=== PATIENT | female | born 1970 | race African-American/Black ===

== ENCOUNTER 2017-03-02 01:20 | Inpatient (IN) | payer BC, OTHER ==
[2017-03-02] VITALS (12 sets, daily range): BP systolic 100–146; BP diastolic 50–80; PULSE 55–71; RESP 16–33; TEMP 98–98.3; O2SAT 96–100
[~2017-03-02] VITALS: Ht 149.9 cm; Wt 55.0 kg
[~2017-03-02 01:20] MED LIST: ASPI325T PO; CLON0.2T PO; LISI-363 PO; METO25 PO; TRAM50TA PO
[2017-03-02] MEDS ORDERED: SODIUM CHLOR 0.9% 1000 ML INJ 1,000 ML IV ONE (01:37)
[2017-03-02] MEDS ORDERED: SODIUM CHLORIDE 0.9% FLUSH 10 ML FLUSH IVF PRN ×2 (01:45→03:00)
[2017-03-02 02:10] LABS: AUTOMATED NEUTROPHIL # 2.5 TH/MM3 (1.8-7.7); BASOPHIL % 0.8 % (0.0-2.0); EOSINOPHIL # 0.1 TH/MM3 (0-0.4); HEMATOCRIT 39.3 % (35.0-46.0); HEMO FLAGS DIFF FINAL; LYMPH % 42.4 % (9.0-44.0); LYMPHOCYTE # 2.3 TH/MM3 (1.0-4.8); MEAN CELL VOLUME 92.3 FL (80.0-100.0); MEAN CORPUSCULAR HEMOGLOBIN 31.1 PG (27.0-34.0); MEAN CORPUSCULAR HGB CONC 33.7 % (32.0-36.0); MONO % 8.2 % (0.0-8.0); NEUT % 47.6 % (16.0-70.0); PLATELET COUNT 245 TH/MM3 (150-450); RED BLOOD COUNT 4.26 MIL/MM3 (4.00-5.30); RED CELL DISTRIBUTION WIDTH 14.9 % (11.6-17.2); WHITE BLOOD COUNT 5.3 TH/MM3 (4.0-11.0)
[2017-03-02 02:18] LABS: APTT (PATIENT) 26.1 SEC (24.3-30.1)
[2017-03-02 02:29] LABS: ANION GAP 6 MEQ/L (5-15)
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
--- NOTE | 2017-03-02 02:39 | RADRPT ---
EXAM DATE/TIME: 03/02/2017 01:50 [facility] COMPARISON: CHEST SINGLE AP, May 31, 2013, 23:50. INDICATIONS : Possible overdose. MEDICAL HISTORY : hx TIA SURGICAL HISTORY : None. ENCOUNTER: Initial ACUITY: 1 day PAIN SCORE: 1/10 LOCATION: Bilateral upper chest FINDINGS: A single view of the chest demonstrates the lungs to be symmetrically aerated without evidence of mas s, infiltrate or effusion. The cardiomediastinal contours are unremarkable. Osseous structures are intact. CONCLUSION: No acute disease. Garry Santiago MD on March 02, 2017 at 2:36 Board Certified Radiologist. This report was verified electronically.
[2017-03-02 02:41] LABS: ALKALINE PHOSPHATASE 94 U/L (45-117); ALT (GPT) 12 U/L (10-53); AST (GOT) 11 U/L (15-37); BETA HCG QUANT 4 MIU/ML (0-5); BICARBONATE 26.3 MEQ/L (21.0-32.0); BLOOD UREA NITROGEN 7 MG/DL (7-18); CHLORIDE 114 MEQ/L (98-107); GLOMERULAR FILTRATION RATE 93 ML/MIN (>89); POTASSIUM 3.9 MEQ/L (3.5-5.1); SODIUM (NA) 146 MEQ/L (136-145); TOTAL BILIRUBIN ADULT LESS THAN 0.1 MG/DL (0.2-1.0)
[2017-03-02 02:42] LABS: ACETAMINOPHEN LESS THAN 2.0 MCG/ML (10.0-30.0)
[2017-03-02] MEDS ORDERED: ACTIVATED CHARCOAL LIQUID 25 GM/120 ML BTL PO/NG ONE (03:00)
[2017-03-02 03:04] LABS: BLOOD GAS BASE EXCESS -1.8 mmol/L (-2-2); BLOOD GAS CARBOXYHEMOGLOBIN 5.2 % (0-4); BLOOD GAS HCO3 22 mmol/L (22-26); BLOOD GAS METHEMOGLOBIN 0.7 % (0-2); BLOOD GAS O2 HGB SATURATION 92 % (90-100); BLOOD GAS OXYGEN CONTENT 15.5 Vol % (12.0-20.0); BLOOD GAS PCO2 37 mmHg (38-42); BLOOD GAS PO2 113 mmHG (61-120); BLOOD GAS TOTAL HGB 11.8 G/DL (12.0-16.0); TEMP CORR TO 98.6
[2017-03-02 03:05] LABS: CRITICAL VALUE YES; DRAW SITE RT RADIAL; FIO2 21 %; NUMBER OF ARTERIAL PUNCTURES 1; OXYGEN DEVICE RA; STAT YES; ULNAR PULSE PRESENT
[2017-03-02] MEDS ORDERED: SODIUM CHLOR 0.9% 1000 ML INJ 1,000 ML IV SCH (03:15)
[2017-03-02] MEDS ORDERED: MISCELLANEOUS NURSING INFORMATION XX SCH (03:30)
[2017-03-02] MEDS ORDERED: CHLORHEXIDINE GLUCONATE 2 % 1 PACK (2 CLOTHS) TOP PRN (03:30)
[2017-03-02] MEDS ORDERED: SODIUM BICARBONATE 8.4% INJ 150 MEQ in DEXTROSE 5% IN WATE 1000ML INJ 1,000 ML IV SCH ×2 (03:30)
[2017-03-02] MEDS ORDERED: MAGNESIUM HYDROXIDE SUSP 30 ML CUP PO PRN (03:30)
[2017-03-02] MEDS ORDERED: LACTULOSE SYRUP 20 GM/30 ML CUP PO PRN (03:30)
[2017-03-02] MEDS ORDERED: ONDANSETRON HCL 4 MG/2 ML VIAL IV PRN (03:30)
[2017-03-02] MEDS ORDERED: hydrALAZINE HCL 20 MG/ML VIAL IV PUSH PRN (03:30)
[2017-03-02] MEDS ORDERED: RESP: ALBUTEROL 2.5 MG/3 ML NEB (PRN) INH (03:30)
[2017-03-02] MEDS ORDERED: BISACODYL 10 MG SUPP RECTAL PRN (03:30)
[2017-03-02] MEDS ORDERED: SENNOSIDES 8.6 MG TAB PO PRN (03:30)
[2017-03-02] MEDS ORDERED: SODIUM CHLORIDE 0.9% FLUSH 10 ML FLUSH IV FLUSH PRN (03:30)
[2017-03-02] MEDS ORDERED: NITROGLYCERIN 2% OINT 1 GM PACKET TOPICAL PRN (03:30)
[2017-03-02] MEDS ORDERED: DEXTROSE 50% IN WATER 50 ML VIAL(D50) IV PRN (03:45)
[2017-03-02] MEDS ORDERED: GLUCAGON 1 MG/ML VIAL OTHER PRN (03:45)
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
[2017-03-02 03:46] LABS: BLOOD, URINE NEG (NEG); COMMENT (UR) CULT NOT INDICATED; CULTURE IF INDICATED CULT NOT INDICATED; GLUCOSE,URINE NEG (NEG); KETONE, URINE NEG (NEG); MUCUS URINE FEW /lpf (OCC); NITRITE,URINE NEG (NEG); PH, URINE 5.5 (5.0-8.5); SQUAMOUS EPITHELIAL CELL URINE 5 /hpf (0-5); URINE COLOR LIGHT-YELLOW (YELLW/STRAW)
[2017-03-02] MEDS ORDERED: CHLORHEXIDINE GLUCONATE 2 % 1 PACK (2 CLOTHS) TOP SCH (04:00)
[2017-03-02 04:04] LABS: AMPHETAMINE, URINE NEG (NEG); BARBITURATES, URINE NEG (NEG); COCAINE, URINE NEG (NEG)
[2017-03-02 04:53] LABS: BICARBONATE 22.2 MEQ/L (21.0-32.0); POTASSIUM 3.2 MEQ/L (3.5-5.1)
[2017-03-02 05:57] LABS: BICARBONATE 22.9 MEQ/L (21.0-32.0); POTASSIUM 3.4 MEQ/L (3.5-5.1)
[2017-03-02] MEDS ORDERED: PANTOPRAZOLE SODIUM 40 MG VIAL IV PUSH SCH (06:00)
[2017-03-02] MEDS: HEPARIN SODIUM - SQ 10,000 UNITS/ML VIAL SQ SCH ×2 (06:00→13:28)
[2017-03-02] MEDS: INSULIN NovoLIN REGULAR SUPPLEMENTAL SCALE SQ SCH ×2 (06:00→11:09)
[2017-03-02] MEDS ORDERED: THIAMINE INJ 100 MG in SODIUM CHLORIDE 0.9% INJ 100 ML IV SCH (09:00)
[2017-03-02] MEDS ORDERED: FOLIC ACID 1 MG TAB PO SCH (09:00)
[2017-03-02] MEDS ORDERED: SODIUM CHLORIDE 0.9% FLUSH 10 ML FLUSH IV FLUSH SCH (09:00)
[2017-03-02] MEDS ORDERED: MULTIVITAMIN TAB PO SCH (09:00)
[2017-03-02] MEDS ORDERED: DOCUSATE SODIUM 50 MG/SENNA 8.6 MG TAB PO SCH (09:00)
[2017-03-02] MEDS ORDERED: LISI20TA PO (11:32)
--- NOTE | 2017-03-02 12:55 | PD.CONS ---
HPI Service Nephrology Consult Requested By Dr. Ceja Reason for Consult Salicylate overdose Primary Care Physician Unknown History of Present Illness Patient is a 46-year-old female with history of depression, TIA in the past 5, hypertension who presented to the emergency after taking a handful of aspirin she thinks that she took 12 pills of 325 mg, she also drank alcohol 16 ounce x 3 she is complaining of just headaches there is no shortness of breath no ringing in the ears and she is feeling comfortable now last salicylate levels were 25.1 Review of Systems Constitutional: COMPLAINS OF: Fatigue Neurologic: COMPLAINS OF: Headache Past Family Social History Allergies: Coded Allergies: Hydrocodone (Verified Allergy, Severe, Itching, 03/02/17) Past Medical History TIA Depression bipolar Hypertension Irritable bowel syndrome Asthma Reported Medications Reported Meds & Active Scripts Active Reported Lisinopril-Hctz 20-12.5 Mg Tab 1 Tab PO DAILY Active Ordered Medications Current Medications Medications (Trade) Dose Ordered Sig/Francie Route Start Time Stop Time Status Last Admin Sodium Chloride 1,000 ml @ 100 mls/hr Q10H IV 03/02/17 03:15 Hold 03/02/17 03:18 (Thiamine Inj/NS Inj) 101 ml @ 101 mls/hr DAILY IV 03/02/17 09:00 03/02/17 09:00 (Folate) 1 mg DAILY PO 03/02/17 09:00 03/02/17 09:46 (Theragran) 1 tab DAILY PO 03/02/17 09:00 03/02/17 09:45 (NS Flush) 2 ml UNSCH PRN IV FLUSH 03/02/17 03:30 03/02/17 09:46 (NS Flush) 2 ml BID IV FLUSH 03/02/17 09:00 03/02/17 09:46 (Zofran Inj) 4 mg Q6H PRN IV 03/02/17 03:30 (Heparin Inj) 5,000 units Q8HR SQ 03/02/17 06:00 Miscellaneous Information 1 Q361D XX 03/02/17 03:30 03/02/17 03:30 (Chlorhexidine 2% Cloth) 3 pack Taper DAILY@04 TOP 03/02/17 04:00 02/26/18 03:59 03/02/17 04:00 (Chlorhexidine 2% Cloth) 3 pack UNSCH PRN TOP 03/02/17 03:30 (Mayra-Colace) 1 tab BID PO 03/02/17 09:00 03/02/17 09:00 (Milk Of Magnesia Liq) 30 ml Q12H PRN PO 03/02/17 03:30 (Senokot) 17.2 mg Q12H PRN PO 03/02/17 03:30 (Dulcolax Supp) 10 mg DAILY PRN RECTAL 03/02/17 03:30 (Lactulose Liq) 30 ml DAILY PRN PO 03/02/17 03:30 (Apresoline Inj) 10 mg Q1HR PRN IV PUSH 03/02/17 03:30 (Nitroglycerin 2% Oint) 1 inch Q6HR PRN TOPICAL 03/02/17 03:30 (Protonix Inj) 40 mg Q24H IV PUSH 03/02/17 06:00 03/02/17 06:17 (D50w (Vial) Inj) 50 ml UNSCH PRN IV 03/02/17 03:45 (Glucagon Inj) 1 mg UNSCH PRN OTHER 03/02/17 03:45 (NovoLIN R SUPPLEMENTAL SCALE) 1 Q6HR SQ 03/02/17 06:00 Family History Noncontributory Social History Smokes marijuana and drinks alcohol regularly Physical Exam Vital Signs Vital Signs Date Time Temp Pulse Resp B/P Pulse Ox O2 Delivery O2 Flow Rate FiO2 03/02/17 12:00 98.3 55 28 107/59 99 03/02/17 12:00 55 03/02/17 11:00 67 03/02/17 11:00 67 33 139/80 100 03/02/17 10:00 64 03/02/17 10:00 64 24 146/75 100 03/02/17 08:00 62 03/02/17 08:00 98.2 62 22 105/50 98 03/02/17 06:00 71 03/02/17 04:48 98.0 70 16 111/60 97 03/02/17 04:00 62 19 100/57 100 Room Air 03/02/17 02:00 60 22 118/73 100 Room Air 03/02/17 01:50 18 96 Room Air 03/02/17 01:36 98.1 65 20 141/72 98 Physical Exam GENERAL: Well-nourished, well-developed patient. SKIN: Warm and dry. HEAD: Normocephalic. EYES: No scleral icterus. No injection or drainage. NECK: Supple, trachea midline. No JVD or lymphadenopathy. CARDIOVASCULAR: Regular rate and rhythm without murmurs, gallops, or rubs. RESPIRATORY: Breath sounds equal bilaterally. No accessory muscle use. GASTROINTESTINAL: Abdomen soft, non-tender, nondistended. EXTREMITIES: No cyanosis, or edema. NEUROLOGICAL: Awake, alert, and oriented x 3. Non-focal. Laboratory Laboratory Tests Test 03/02/17 03/02/17 03/02/17 03/02/17 02:00 02:50 03:30 04:12 White Blood Count 5.3 Red Blood Count 4.26 Hemoglobin 13.2 Hematocrit 39.3 Mean Corpuscular Volume 92.3 Mean Corpuscular Hemoglobin 31.1 Mean Corpuscular Hemoglobin 33.7 Concent Red Cell Distribution Width 14.9 Platelet Count 245 Mean Platelet Volume 8.6 Neutrophils (%) (Auto) 47.6 Lymphocytes (%) (Auto) 42.4 Monocytes (%) (Auto) 8.2 Eosinophils (%) (Auto) 1.0 Basophils (%) (Auto) 0.8 Neutrophils # (Auto) 2.5 Lymphocytes # (Auto) 2.3 Monocytes # (Auto) 0.4 Eosinophils # (Auto) 0.1 Basophils # (Auto) 0.0 CBC Comment DIFF FINAL Differential Comment Prothrombin Time 11.0 Prothromb Time International 1.0 Ratio Activated Partial 26.1 Thromboplast Time Sodium Level 146 148 Potassium Level 3.9 3.2 Chloride Level 114 116 Carbon Dioxide Level 26.3 22.2 Anion Gap 6 10 Blood Urea Nitrogen 7 7 Creatinine 0.81 0.76 Estimat Glomerular Filtration 93 100 Rate Random Glucose 82 133 Serum Osmolality 372 Calcium Level 8.7 7.7 Total Bilirubin LESS THAN 0.1 Aspartate Amino Transf 11 (AST/SGOT) Alanine Aminotransferase 12 (ALT/SGPT) Alkaline Phosphatase 94 Total Protein 8.1 Albumin 3.9 Human Chorionic Gonadotropin, 4 Quant Salicylates Level 31.9 25.4 Acetaminophen Level LESS THAN 2.0 Ethyl Alcohol Level 295 Blood Gas Puncture Site RT RADIAL Blood Gas Patient Temperature 98.6 Blood Gas HCO3 22 Blood Gas Base Excess -1.8 Blood Gas Oxygen Saturation 92 Arterial Blood pH 7.40 Arterial Blood Partial 37 Pressure CO2 Arterial Blood Partial 113 Pressure O2 Arterial Blood Oxygen Content 15.5 Arterial Blood 5.2 Carboxyhemoglobin Arterial Blood Methemoglobin 0.7 Blood Gas Hemoglobin 11.8 Oxygen Delivery Device RA Blood Gas Inspired Oxygen 21 Urine Color LIGHT-YELLOW Urine Turbidity HAZY Urine pH 5.5 Urine Specific [place] 1.007 Urine Protein NEG Urine Glucose (UA) NEG Urine Ketones NEG Urine Occult Blood NEG Urine Nitrite NEG Urine Bilirubin NEG Urine Urobilinogen LESS THAN 2.0 Urine Leukocyte Esterase TRACE Urine RBC 2 Urine WBC 1 Urine Squamous Epithelial 5 Cells Urine Mucus FEW Microscopic Urinalysis Comment CULT NOT INDICATED Urine Osmolality 363 Urine Opiates Screen NEG Urine Barbiturates Screen NEG Urine Amphetamines Screen NEG Urine Benzodiazepines Screen NEG Urine Cocaine Screen NEG Urine Cannabinoids Screen POS Total Creatine Kinase 95 Lipase 510 Test 03/02/17 03/02/17 03/02/17 04:40 05:07 08:55 Nasal Screen MRSA (PCR) MRSA NOT DETECTED Sodium Level 148 Potassium Level 3.4 Chloride Level 118 Carbon Dioxide Level 22.9 Anion Gap 7 Blood Urea Nitrogen 6 Creatinine 0.78 Estimat Glomerular Filtration 97 Rate Random Glucose 75 Calcium Level 7.8 Salicylates Level 26.7 25.1 Result Diagram: 03/02/17 0200 03/02/17 0507 Imaging Last Impressions Chest X-Ray 03/02/17136 Signed Impressions: Service Date/Time: Thursday, March 02, 2017 01:50 - CONCLUSION: No acute disease. Garry Santiago MD Laboratory Tests Test 03/02/17 03/02/17 03/02/17 03/02/17 02:00 02:50 03:30 04:12 White Blood Count 5.3 TH/MM3 Red Blood Count 4.26 MIL/MM3 Hemoglobin 13.2 GM/DL Hematocrit 39.3 % Mean Corpuscular Volume 92.3 FL Mean Corpuscular Hemoglobin 31.1 PG Mean Corpuscular Hemoglobin 33.7 % Concent Red Cell Distribution Width 14.9 % Platelet Count 245 TH/MM3 Mean Platelet Volume 8.6 FL Neutrophils (%) (Auto) 47.6 % Lymphocytes (%) (Auto) 42.4 % Monocytes (%) (Auto) 8.2 % Eosinophils (%) (Auto) 1.0 % Basophils (%) (Auto) 0.8 % Neutrophils # (Auto) 2.5 TH/MM3 Lymphocytes # (Auto) 2.3 TH/MM3 Monocytes # (Auto) 0.4 TH/MM3 Eosinophils # (Auto) 0.1 TH/MM3 Basophils # (Auto) 0.0 TH/MM3 CBC Comment DIFF FINAL Differential Comment Prothrombin Time 11.0 SEC Prothromb Time International 1.0 RATIO Ratio Activated Partial 26.1 SEC Thromboplast Time Serum Osmolality 372 MOSM/KG Total Bilirubin LESS THAN 0.1 MG/DL Aspartate Amino Transf 11 U/L (AST/SGOT) Alanine Aminotransferase 12 U/L (ALT/SGPT) Alkaline Phosphatase 94 U/L Total Protein 8.1 GM/DL Albumin 3.9 GM/DL Human Chorionic Gonadotropin, 4 MIU/ML Quant Acetaminophen Level LESS THAN 2.0 MCG/ML Ethyl Alcohol Level 295 MG/DL Blood Gas Puncture Site RT RADIAL Blood Gas Patient Temperature 98.6 Blood Gas HCO3 22 mmol/L Blood Gas Base Excess -1.8 mmol/L Blood Gas Oxygen Saturation 92 % Arterial Blood pH 7.40 Arterial Blood Partial 37 mmHg Pressure CO2 Arterial Blood Partial 113 mmHG Pressure O2 Arterial Blood Oxygen Content 15.5 Vol % Arterial Blood 5.2 % Carboxyhemoglobin Arterial Blood Methemoglobin 0.7 % Blood Gas Hemoglobin 11.8 G/DL Oxygen Delivery Device RA Blood Gas Inspired Oxygen 21 % Urine Color LIGHT-YELLOW Urine Turbidity HAZY Urine pH 5.5 Urine Specific [place] 1.007 Urine Protein NEG mg/dL Urine Glucose (UA) NEG mg/dL Urine Ketones NEG mg/dL Urine Occult Blood NEG Urine Nitrite NEG Urine Bilirubin NEG Urine Urobilinogen LESS THAN 2.0 MG/DL Urine Leukocyte Esterase TRACE Urine RBC 2 /hpf Urine WBC 1 /hpf Urine Squamous Epithelial 5 /hpf Cells Urine Mucus FEW /lpf Microscopic Urinalysis Comment CULT NOT INDICATED Urine Osmolality 363 MOSM/KG Urine Opiates Screen NEG Urine Barbiturates Screen NEG Urine Amphetamines Screen NEG Urine Benzodiazepines Screen NEG Urine Cocaine Screen NEG Urine Cannabinoids Screen POS Total Creatine Kinase 95 U/L Lipase 510 U/L Test 03/02/17 03/02/17 03/02/17 04:40 05:07 08:55 Nasal Screen MRSA (PCR) MRSA NOT DETECTED Sodium Level 148 MEQ/L Potassium Level 3.4 MEQ/L Chloride Level 118 MEQ/L Carbon Dioxide Level 22.9 MEQ/L Anion Gap 7 MEQ/L Blood Urea Nitrogen 6 MG/DL Creatinine 0.78 MG/DL Estimat Glomerular Filtration 97 ML/MIN Rate Random Glucose 75 MG/DL Calcium Level 7.8 MG/DL Salicylates Level 25.1 MG/DL Assessment and Plan Problem List: (1) Salicylate overdose Plan: I agree with medical treatment continued supportive care hydration Her levels are slowly going down and she is stable enough to be transferred out of the unit There is no indication for hemodialysis There is no acidosis PH 7.4 I will sign off replace K (2) Hypertension Plan: Stable (3) Bipolar disorder Plan: Needs psychiatry transfer (4) Alcohol intoxication Plan: Alcohol level was 295 Problem Qualifiers (1) Salicylate overdose: Qualified Code: T39.092A - Salicylate overdose, intentional self-harm, initial encounter (2) Hypertension: Qualified Code: I10 - Essential hypertension (3) Bipolar disorder: Qualified Code: F31.60 - Bipolar affective disorder, current episode mixed, current episode severity unspecified (4) Alcohol intoxication: Qualified Code: F10.920 - Alcohol intoxication, uncomplicated Rina Barrett MD Mar 02, 2017 12:55
[2017-03-02] MEDS ORDERED: POTASSIUM CHLORIDE 10 MEQ CONTROLLED RELEASE TAB PO ONE (13:00)
--- NOTE | 2017-03-02 13:13 | EKG ---
Date Performed: 03/02/2017 Time Performed: 01:57:54 PTAGE: 46 years EKG: Sinus rhythm NORMAL ECG PREVIOUS TRACING : 09/20/2014 03.40 Compared to prior tracing no significant change DOCTOR: David Mireles Interpretating Date/Time 03/02/2017 13:11:01
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
[2017-03-02 14:04] LABS: BICARBONATE 29.6 MEQ/L (21.0-32.0); MAGNESIUM 1.6 MG/DL (1.5-2.5); POTASSIUM 3.3 MEQ/L (3.5-5.1)
== END 2017-03-02 16:16 | DRG 918 ==
LOC: NEPC 01:20 → NEDA 03:11 → HIME 04:30
PROVIDERS: ADMIT Internal Medicine Critical Care Medicine; ATTEND Internal Medicine Critical Care Medicine
DX: T39.012A Poisoning by aspirin, intentional self-harm, initial encounter (principal); F31.9 Bipolar disorder, unspecified; I10 Essential (primary) hypertension; F10.120 Alcohol abuse with intoxication, uncomplicated; Y90.8 Blood alcohol level of 240 mg/100 ml or more; J45.909 Unspecified asthma, uncomplicated; Z86.73 Personal history of transient ischemic attack (TIA), and cerebral infarction without residual deficits; K58.9 Irritable bowel syndrome, unspecified; K21.0 Gastro-esophageal reflux disease with esophagitis; K08.9 Disorder of teeth and supporting structures, unspecified; Z87.891 Personal history of nicotine dependence
CPT/HCPCS: 36600; 71010; 80048; 80053; 80307; 81001; 82550; 82805; 82948; 83690; 83735; 83930; 83935; 84100; 84443; 84702; 85025; 85610; 85730; 87641; 93005; 94150; C9113; J1644; J2405; J3411; J7030; J7070

== ENCOUNTER 2017-03-02 15:15 | Inpatient (IN) | payer BC ==
[~2017-03-02] VITALS: Ht 149.9 cm; Wt 52.7 kg
[~2017-03-02 15:15] MED LIST changes: +LISI20TA PO
[2017-03-02 16:20] VITALS: BP 165/79; PULSE 63; RESP 18; TEMP 98.3; O2SAT 100
[2017-03-02] MEDS ORDERED: LORazepam 1 MG TAB PO PRN (21:45)
[2017-03-02] MEDS ORDERED: LORazepam 0.5 MG TAB PO PRN (21:45)
[2017-03-02] MEDS ORDERED: ALUMINUM/MAGNESIUM/SIMETH 30 ML CUP PO PRN (21:45)
[2017-03-02] MEDS ORDERED: LORazepam 2 MG/ML VIAL IM PRN ×2 (21:45)
[2017-03-02] MEDS ORDERED: MAGNESIUM HYDROXIDE SUSP 30 ML CUP PO PRN (21:45)
[2017-03-02 22:00] VITALS: BP 172/84; PULSE 68; RESP 20; O2SAT 100
[2017-03-02] MEDS: ACETAMINOPHEN 325 MG TAB PO PRN (22:21)
[2017-03-02 23:15] VITALS: BP 173/76; PULSE 64; RESP 20; TEMP 98.3; O2SAT 100
[2017-03-03 06:14] VITALS: BP 122/62; PULSE 58; RESP 18; TEMP 98.6; O2SAT 99
[2017-03-03] MEDS ORDERED: HYDROCHLOROTHIAZIDE 25 MG TAB PO SCH (09:00)
[2017-03-03] MEDS ORDERED: NON-FORMULARY DRUG (Lisinopril-Hctz 1 TAB) PO SCH (09:00)
[2017-03-03] MEDS ORDERED: NICOTINE 21 MG/24 HR PATCH T-DERMAL SCH (09:00)
[2017-03-03] MEDS ORDERED: LISINOPRIL 20 MG TAB PO SCH (09:00)
--- NOTE | 2017-03-03 09:26 | EKG ---
Date Performed: 03/02/2017 Time Performed: 21:57:25 PTAGE: 46 years EKG: SINUS BRADYCARDIA MINIMAL VOLTAGE CRITERIA FOR LVH, CONSIDER NORMAL VARIANT BORDERLINE ECG PREVIOUS TRACING : 03/02/2017 01.57 DOCTOR: Dominguez Galindo Interpretating Date/Time 03/03/2017 09:25:17
[2017-03-03] MEDS: ACETAMINOPHEN 325 MG TAB PO PRN (10:01)
[2017-03-03 10:47] LABS: ANION GAP 12 MEQ/L (5-15); BICARBONATE 21.9 MEQ/L (21.0-32.0); BLOOD UREA NITROGEN 4 MG/DL (7-18); CHLORIDE 106 MEQ/L (98-107); GLOMERULAR FILTRATION RATE 79 ML/MIN (>89); SODIUM (NA) 140 MEQ/L (136-145)
[2017-03-03 10:52] LABS: HDL CHOLESTEROL 61.5 MG/DL (40.0-60.0); LDL CHOLESTEROL 104 MG/DL (0-99)
[2017-03-03] MEDS ORDERED: ACETAMINOPHEN 325 MG TAB PO PRN (12:15)
[2017-03-03] MEDS ORDERED: ALUMINUM/MAGNESIUM/SIMETH 30 ML CUP PO PRN (12:15)
[2017-03-03] MEDS ORDERED: MAGNESIUM HYDROXIDE SUSP 30 ML CUP PO PRN (12:15)
--- NOTE | 2017-03-03 12:36 | HHI.HP ---
Provisional Diagnosis Admission Date Mar 02, 2017 at 16:23 [place]. Adjustment disorder with mixed disturbances of emotion and conduct f 43.25, alcohol intoxication f 10.929 Certification of Person's Competence To Provide Express and Informed Consent I have personally examined Marjan Miranda , a person being served at [facility] on, Mar 03, 2017 12:18. Express and informed consent means consent voluntarily given in writing, by a competent person, after sufficient explanation and disclosure of the subject matter involved to enable the person to make a knowing and willful decision without any element of force, fraud, deceit, duress, or other form of constraint or coercion. This person is 18 years of age or older, is not now known to be incompetent to consent to treatment with a guardian advocate, and does not have a health care surrogate or proxy currently making medical treatment decisions. I have found this person to be one of the following: [xx] Competent to provide express and informed consent, as defined above, for voluntary admission to this facility and is competent to provide express and informed consent for treatment. He/she has the consistent capacity to make well reasoned, willful, and knowing decisions concerning his or her medical or mental health treatment. The person fully and consistently understands the purpose of the admission for examination/placement and is fully capable of personally exercising all rights [place] [] Incompetent to provide express and informed consent to voluntary admission, and this is incompetent to provide express and informed consent to treatment. The person must be transferred to involuntary status and a petition for a guardian advocate filed with the Circuit Court. [] Refusing to provide express and informed consent to voluntary admission but is competent to provide express and informed consent for treatment. The person must be discharged or transferred to involuntary status. Form shall be completed within 24 hours of a person's arrival at the receiving facility and filed in the clinical record of each person: 1. Admitted on a voluntary basis 2. Permitted to provide express and informed consent to his/her own treatment 3. Allowed to transfer from involuntary to voluntary status 4. Prior to permitting a person to consent to his or her own treatment after having been previously found incompetent to consent to treatment. History of Present Illness Capacity: Has Capacity HPI Patient is a 46-year-old Afro-Iraqi female who initially came to the emergency department on 03/02/17 : Aspirin overdose salicylate level on 03/02/17 at 0200 hrs. was 31.9, most recent salicylate level on 03/02/17 at 1300 hrs. was 15.9. Also on that day blood alcohol level of 295 and her toxicology positive for marijuana. Patient came to the ED on that day under Rushing act by the [facility] police dated 03/02/17 at 0111 hours that document reviewed stated essentially that Desirae Miranda call 911 dispatch telling them that her mother Ronda has a history of suicide statements. She stated that her mother called and stated that she took a handful of pills she stated that she did not say this however she called her daughter back and stated that she lied to the police. Ronda then admitted to taking a handful of pills and lying to the police the first trip out. Patient was seen by Dr. Bonilla at that time. Patient then transferred to the unit for further care. At the present time patient laying in her bed on 2600 nurse Katelyn and counselor Vianney present throughout session patient denies suicidality homicidality voices or visions states the only she complains of is a bad toothache point her left lower mandible. She denies any suicidal ideation intent or plan stating that she took the aspirin a few pills at a time over a brief period of time. She also states that she only drank had one day also related to the pain. She denies any other past psychiatric history except related to events related to her pain issues review of EMR shows of visit with us in 2013 the overdose of Tylenol related to dental pain. In any event at the present time patient continues to denies suicidality homicidality voices or visions continues to focus primarily on her tooth pain and her need to get care for that. There is an entitlement involved with her as to what we can provide her here on the psychiatric unit. At the present time I feel patient does not meet Rushing criteria. There is a significant degree of manipulation also involved with this. The patient will be discharged today she does not meet Rushing criteria. The been no Rx by me. With a counselor attempt to refer patient to appropriate resources in the community. Also recommend [facility] outpatient substance abuse assessment Review of Systems Except as stated in HPI: all other systems reviewed are Neg Past Psych History Psychological trauma history Patient willing to give information related to this Violence risk - others (6 mos) Low Violence risk - self (6 mos) Low Substance Abuse History Drugs/Alcohol past 12 months Patient minimizing and denying significance of her alcohol use, minimizing also use of marijuana Past Family Social History Coded Allergies: Hydrocodone (Verified Allergy, Severe, Itching, 03/02/17) Past Medical History Patient focusing on her dental pain Reported Medications Lisinopril-Hctz 20-12.5 Mg Tab1 Tab PO DAILY #30 TAB Ref 0 03/02/17 Current Medications Medications (Trade) Dose Ordered Sig/Francie Route Start Time Stop Time Status Last Admin (Prinivil) 20 mg DAILY PO 03/03/17 09:00 03/03/17 09:00 (Hydrodiuril) 12.5 mg DAILY PO 03/03/17 09:00 03/03/17 09:00 (Ativan) 1 mg Q6H PRN PO 03/02/17 21:45 03/02/17 22:21 (Ativan Inj) 1 mg Q6H PRN IM 03/02/17 21:45 (Ativan) 0.5 mg Q12H PRN PO 03/02/17 21:45 (Ativan Inj) 0.5 mg Q12H PRN IM 03/02/17 21:45 (Tylenol) 650 mg Q4H PRN PO 03/02/17 21:45 03/03/17 10:01 (Milk Of Magnesia Liq) 30 ml DAILY PRN PO 03/02/17 21:45 (Mag-Al Plus Susp Liq) 30 ml Q6H PRN PO 03/02/17 21:45 (Habitrol 21 Mg Patch.24 Hr) 1 patch DAILY T-DERMAL 03/03/17 09:00 Family History Patient willing to give further information about family Social History It appears patient lives by herself though does have communication with her adult daughter Patient's Strengths (min. 2) Patient verbal able access healthcare Physical Exam Patient seen screened in ED exam reviewed and agreed with patient seen somewhat agitated state and a room though in no acute distress except morning at her left lower mandible there is no respiratory distress. Patient with all 4 extremities without difficulty more abnormal motor movements noted Vital Signs Vital Signs Date Time Temp Pulse Resp B/P Pulse Ox O2 Delivery O2 Flow Rate FiO2 03/03/17 06:14 98.6 58 18 122/62 99 Mental Status Examination Alert oriented Afro-Iraqi female appears stated age angry irritable and uncooperative Appearance Somewhat disheveled Speech: Rapid, Tangential Orientation: x3 Memory: Unremarkable Thought Process: Linear Thought Content: Obsessions (or dental pain) Language Nepali Fund of Knowledge Fair Hallucination Type: None (denies) Attention and Concentration: Other (fair) Suicidal Ideation: No (denies) Previous Suicide Attempts: Yes Homicidal Ideation: No (denies) Previous Homicide Attempts: No Insight: Poor Judgment: Poor Affect: Other (increased range and intensity) Mood: Euthymic, Angry, Irritable Motor Activity: Normal gait Assessment & Plan Problem List: (1) Alcohol intoxication ICD Code: F10.929 (2) Adjustment disorder with mixed disturbance of emotions and conduct ICD Code: F43.25 Assessment & Plan Estimated LOS: days patient does not meet criteria for inpatient psychiatric hospitalization. I will lift Rushing act. Patient to be discharged herself. No Rx by me. Counselor to refer to services in the community. Refer also [facility] voluntary outpatient substance abuse assessment Discharge Planning See above Request HC Surrog/Guard Advoc?: No Mingo Madrigal MD Mar 03, 2017 12:36
[2017-03-03 12:42] LABS: HEMOGLOBIN A1a 1.2 %; HEMOGLOBIN A1b 1.4 %; HEMOGLOBIN Ao 85.5 %; HEMOGLOBIN F 0.2 %; HEMOGLOBIN P3 3.6 %
--- NOTE | 2017-03-03 12:43 | HHI.DS ---
Psychiatry Discharge Summary Inpatient Psychiatric care?: Yes Advance Directive: Yes Mental Health AdvanceDirective: No Health Care Proxy: No Admission Admission Date Mar 02, 2017 at 16:23 Admission Diagnosis: (1) Adjustment disorder with mixed disturbance of emotions and conduct ICD Code: F43.25 (2) Alcohol intoxication ICD Code: F10.929 (3) Marijuana abuse ICD Code: F12.10 Brief History Patient is a 46-year-old Afro-Lebanese female who initially came to the emergency department on 03/02/17 : Aspirin overdose salicylate level on 03/02/17 at 0200 hrs. was 31.9, most recent salicylate level on 03/02/17 at 1300 hrs. was 15.9. Also on that day blood alcohol level of 295 and her toxicology positive for marijuana. Patient came to the ED on that day under Rushing act by the [facility] police dated 03/02/17 at 0111 hours that document reviewed stated essentially that Desirae Miranda call 911 dispatch telling them that her mother Ronda has a history of suicide statements. She stated that her mother called and stated that she took a handful of pills she stated that she did not say this however she called her daughter back and stated that she lied to the police. Ronda then admitted to taking a handful of pills and lying to the police the first trip out. Patient was seen by Dr. Bonilla at that time. Patient then transferred to the unit for further care. At the present time patient laying in her bed on 2600 nurse Katelyn and counselor Vianney present throughout session patient denies suicidality homicidality voices or visions states the only she complains of is a bad toothache point her left lower mandible. She denies any suicidal ideation intent or plan stating that she took the aspirin a few pills at a time over a brief period of time. She also states that she only drank had one day also related to the pain. She denies any other past psychiatric history except related to events related to her pain issues review of EMR shows of visit with us in 2013 the overdose of Tylenol related to dental pain. In any event at the present time patient continues to denies suicidality homicidality voices or visions continues to focus primarily on her tooth pain and her need to get care for that. There is an entitlement involved with her as to what we can provide her here on the psychiatric unit. At the present time I feel patient does not meet Rushing criteria. There is a significant degree of manipulation also involved with this. The patient will be discharged today she does not meet Rushing criteria. The been no Rx by me. With a counselor attempt to refer patient to appropriate resources in the community. Also recommend [facility] outpatient substance abuse assessment Tobacco Use In Past 30 Days: No Tobacco Past 30 Days Alcohol Use: Monthly or Less Hospital Course Please see above note under brief history. Patient does not meet Rushing criteria. Though she is somewhat angry and out of the manipulative relating to attempting to access dental care. He denies suicidality homicidality voices or visions. Minimizes her alcohol or drug use to be discharged to herself, no Rx by me, follow-up resources in community counselor to help arrange. Refer [facility] voluntary outpatient substance abuse assessment Results Blood Pressure 122 / 62 Vital Signs Date Time Temp Pulse Resp B/P Pulse Ox O2 Delivery O2 Flow Rate FiO2 03/03/17 06:14 98.6 58 18 122/62 99 Laboratory Tests Test 03/03/17 09:15 Potassium Level 3.0 MEQ/L (3.5-5.1) Blood Urea Nitrogen 4 MG/DL (7-18) Estimat Glomerular Filtration 79 ML/MIN (>89) Rate Random Glucose 129 MG/DL (74-106) Calcium Level 8.4 MG/DL (8.5-10.1) LDL Cholesterol 104 MG/DL (0-99) HDL Cholesterol 61.5 MG/DL (40.0-60.0) Laboratory Results Test 03/03/17 09:15 Triglycerides Level 109 MG/DL (42-150) Cholesterol Level 187 MG/DL (120-200) LDL Cholesterol 104 MG/DL (0-99) HDL Cholesterol 61.5 MG/DL (40.0-60.0) Summary of Procedures None done Pending results at discharge: No Medications # of Antipsychotic meds at D/C: 0 Approp Antipsych med options 1 - Minimum of three failed multiple trials of monotherapy. 2 - Documented plan to taper to monotherapy due to previous use of multiple meds OR cross-taper in progress at D/C. 3 - Documentation of augmentation of Clozapine. 4 - Justification other than those listed in allowable values 1-3, document here : Discharge Discharge Date: Mar 03, 2017 Discharge Diagnosis: (1) Marijuana abuse Diagnosis: Secondary ICD Code: F12.10 (2) Alcohol intoxication Diagnosis: Secondary ICD Code: F10.929 (3) Adjustment disorder with mixed disturbance of emotions and conduct Diagnosis: Principal ICD Code: F43.25 (4) Salicylate overdose Diagnosis: Principal ICD Code: T39.091A Mental Status Exam at Disch Alert oriented angry irritable demanding and manipulative Afro-Lebanese female. She is normoactive. Her mood is euthymic to angry with increased range intensity of her affect. Speech rate and rhythm are somewhat increased there are no formal thought disorders, though she is somewhat tangential.. No auditory or visual hallucinations. No delusions. Insight and judgment is poor cognition grossly intact Pt Condition on Discharge: Stable Discharge Disposition: Discharge Home Discharge Instructions Diet Instructions: As Tolerated, No Restrictions Activities you can perform: Regular-No Restrictions Scheduled Appointment: [facility] (outpatient voluntary substance abuse assessment) Discharge Time > 30 minutes Discharge/Advance Care Plan Health Problems: (1) Alcohol intoxication (2) Adjustment disorder with mixed disturbance of emotions and conduct Goals to promote your health * To prevent worsening of your condition and complications * To maintain your health at the optimal level Directions to meet your goals Take your medications as prescribed Follow your dietary instruction Follow activity as directed Keep your appointments as scheduled Take your immunizations and boosters as scheduled If your symptoms worsen call your PCP, if no PCP go to Urgent Care Center or Emergency Room For 22/03 questions related to your inpatient stay or results of tests pending at discharge, please contact Dr. Mingo Madrigal at Smoking is Dangerous to Your Health. Avoid second hand smoking Mingo Madrigal MD Mar 03, 2017 12:43
== END 2017-03-03 14:40 | disposition home or self-care (01) | DRG 897 ==
LOC: H260 16:23
PROVIDERS: ADMIT Psychiatry & Neurology Psychiatry; ATTEND Psychiatry & Neurology Psychiatry
DX: F12.10 Cannabis abuse, uncomplicated (principal); F10.129 Alcohol abuse with intoxication, unspecified; F43.25 Adjustment disorder with mixed disturbance of emotions and conduct; T39.091A Poisoning by salicylates, accidental (unintentional), initial encounter; K08.89 Other specified disorders of teeth and supporting structures
CPT/HCPCS: 80048; 80061; 83036; 84146; 93005

== ENCOUNTER 2017-04-29 11:41 | Emergency (ER) | payer BC ==
[~2017-04-29] VITALS: Ht 157.5 cm; Wt 50.0 kg
[~2017-04-29 11:41] MED LIST changes: -ASPI325T PO; -CLON0.2T PO; -LISI-363 PO; -METO25 PO; -TRAM50TA PO
[2017-04-29 11:43] VITALS: BP 155/102; PULSE 74; RESP 24; TEMP 97.7; O2SAT 100
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
[2017-04-29 11:57] VITALS: BP 158/94; PULSE 70; RESP 16; O2SAT 98
[2017-04-29] MEDS ORDERED: CLON0.3T PO (12:06)
[2017-04-29] MEDS ORDERED: ALPRAZolam 0.25 MG TAB PO ONE (12:15)
[2017-04-29 12:27] LABS: AUTOMATED NEUTROPHIL # 3.9 TH/MM3 (1.8-7.7); BASOPHIL % 0.6 % (0.0-2.0); EOSINOPHIL # 0.1 TH/MM3 (0-0.4); EOSINOPHIL % 0.9 % (0.0-4.0); HEMATOCRIT 36.4 % (35.0-46.0); HEMO FLAGS DIFF FINAL; LYMPHOCYTE # 1.6 TH/MM3 (1.0-4.8); MEAN CELL VOLUME 93.8 FL (80.0-100.0); MEAN CORPUSCULAR HEMOGLOBIN 32.7 PG (27.0-34.0); MEAN CORPUSCULAR HGB CONC 34.9 % (32.0-36.0); MONO % 7.4 % (0.0-8.0); NEUT % 65.1 % (16.0-70.0); PLATELET COUNT 252 TH/MM3 (150-450); RED BLOOD COUNT 3.87 MIL/MM3 (4.00-5.30); RED CELL DISTRIBUTION WIDTH 14.5 % (11.6-17.2)
[2017-04-29 12:46] LABS: ALT (GPT) 22 U/L (10-53); ANION GAP 8 MEQ/L (5-15); AST (GOT) 20 U/L (15-37); BLOOD UREA NITROGEN 11 MG/DL (7-18); CHLORIDE 112 MEQ/L (98-107); GLOMERULAR FILTRATION RATE 116 ML/MIN (>89); POTASSIUM 3.8 MEQ/L (3.5-5.1); SODIUM (NA) 144 MEQ/L (136-145)
[2017-04-29 12:48] LABS: ALKALINE PHOSPHATASE 94 U/L (45-117); TOTAL BILIRUBIN ADULT 0.1 MG/DL (0.2-1.0)
[2017-04-29 13:04] LABS: ACETAMINOPHEN LESS THAN 2.0 MCG/ML (10.0-30.0)
[2017-04-29 13:05] LABS: ALCOHOL 213 MG/DL (0-5)
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
[2017-04-29 13:37] LABS: BLOOD, URINE TRACE (NEG); COMMENT (UR) CULT NOT INDICATED; CULTURE IF INDICATED CULT NOT INDICATED; GLUCOSE,URINE NEG (NEG); HYALINE CAST, URINE 1 /lpf (RARE); KETONE, URINE NEG (NEG); MUCUS URINE FEW /lpf (OCC); NITRITE,URINE NEG (NEG); PH, URINE 5.5 (5.0-8.5); SQUAMOUS EPITHELIAL CELL URINE 7 /hpf (0-5); URINE COLOR YELLOW (YELLW/STRAW)
[2017-04-29] MEDS ORDERED: LISI-515 PO (13:51)
[2017-04-29] MEDS ORDERED: HYDR12.56 PO (13:51)
[2017-04-29 16:41] VITALS: PULSE 65; RESP 15; O2SAT 98
[2017-04-29 17:54] VITALS: BP 127/69; PULSE 92; RESP 16; O2SAT 98
[2017-04-29] MEDS ORDERED: ACETAMINOPHEN 325 MG TAB PO ONE (20:45)
[2017-04-29] MEDS ORDERED: ONDANSETRON ODT 4 MG TAB PO ONE (20:45)
[2017-04-30 08:12] VITALS: BP 198/84; PULSE 58; RESP 18; TEMP 98.9; O2SAT 100
[2017-04-30] MEDS ORDERED: cloNIDine HCL 0.3 MG TAB PO PRN (09:30)
[2017-04-30] MEDS ORDERED: HYDROCHLOROTHIAZIDE 12.5 MG CAP PO SCH (09:30)
[2017-04-30] MEDS ORDERED: LISINOPRIL 20 MG TAB PO SCH (09:30)
[2017-04-30 10:35] VITALS: BP 160/72
--- NOTE | 2017-04-30 14:31 | PD ---
Physical Exam Date Seen by Provider: Apr 30, 2017 Time Seen by Provider: 14:30 Narrative Patient has been cleared by psychiatric staff. Patient is felt to be medically stable for discharge. Please see psychiatric discharge note for further plan of treatment. Data Data Last Documented VS Vital Signs Date Time Temp Pulse Resp B/P (MAP) Pulse Ox O2 Delivery O2 Flow Rate FiO2 04/30/17 10:35 04/30/17 08:12 58 18 04/30/17 08:12 98.9 100 Room Air Orders Orders Complete Blood Count With Diff (04/29/17 11:52) Comprehensive Metabolic Panel (04/29/17 11:52) Urinalysis - C+S If Indicated (04/29/17 11:52) Ed Urine Pregnancytest Poc (04/29/17 11:52) Psych Screen (04/29/17 11:52) Drug Screen, Random Urine (04/29/17 11:52) Alcohol (Ethanol) (04/29/17 11:52) Salicylates (Aspirin) (04/29/17 11:52) Tylenol (Acetaminophen) (04/29/17 11:52) Alprazolam (Xanax) (04/29/17 12:15) Diet Regular Basic (04/29/17 Dinner) Ondansetron Odt (Zofran Odt) (04/29/17 20:45) Acetaminophen (Tylenol) (04/29/17 20:45) Diet Regular Basic (04/30/17 Breakfast) Lisinopril (Prinivil) (04/30/17 09:30) Hydrochlorothiazide (Microzide) (04/30/17 09:30) Clonidine (Catapres) (04/30/17 09:30) Diet Regular Basic (04/30/17 Lunch) Labs Laboratory Tests Test 04/29/17 12:05 04/29/17 12:20 White Blood Count 6.0 TH/MM3 Red Blood Count 3.87 MIL/MM3 Hemoglobin 12.7 GM/DL Hematocrit 36.4 % Mean Corpuscular Volume 93.8 FL Mean Corpuscular Hemoglobin 32.7 PG Mean Corpuscular Hemoglobin Concent 34.9 % Red Cell Distribution Width 14.5 % Platelet Count 252 TH/MM3 Mean Platelet Volume 8.7 FL Neutrophils (%) (Auto) 65.1 % Lymphocytes (%) (Auto) 26.0 % Monocytes (%) (Auto) 7.4 % Eosinophils (%) (Auto) 0.9 % Basophils (%) (Auto) 0.6 % Neutrophils # (Auto) 3.9 TH/MM3 Lymphocytes # (Auto) 1.6 TH/MM3 Monocytes # (Auto) 0.4 TH/MM3 Eosinophils # (Auto) 0.1 TH/MM3 Basophils # (Auto) 0.0 TH/MM3 CBC Comment DIFF FINAL Differential Comment Blood Urea Nitrogen 11 MG/DL Creatinine 0.67 MG/DL Random Glucose 84 MG/DL Total Protein 8.1 GM/DL Albumin 3.9 GM/DL Calcium Level 8.6 MG/DL Alkaline Phosphatase 94 U/L Aspartate Amino Transf (AST/SGOT) 20 U/L Alanine Aminotransferase (ALT/SGPT) 22 U/L Total Bilirubin 0.1 MG/DL Sodium Level 144 MEQ/L Potassium Level 3.8 MEQ/L Chloride Level 112 MEQ/L Carbon Dioxide Level 24.0 MEQ/L Anion Gap 8 MEQ/L Estimat Glomerular Filtration Rate 116 ML/MIN Salicylates Level 5.1 MG/DL Acetaminophen Level LESS THAN 2.0 MCG/ML Ethyl Alcohol Level 213 MG/DL Urine Color YELLOW Urine Turbidity HAZY Urine pH 5.5 Urine Specific [place] 1.024 Urine Protein TRACE mg/dL Urine Glucose (UA) NEG mg/dL Urine Ketones NEG mg/dL Urine Occult Blood TRACE Urine Nitrite NEG Urine Bilirubin NEG Urine Urobilinogen LESS THAN 2.0 MG/DL Urine Leukocyte Esterase TRACE Urine RBC 1 /hpf Urine WBC 3 /hpf Urine Squamous Epithelial Cells 7 /hpf Urine Hyaline Casts 1 /lpf Urine Mucus FEW /lpf Microscopic Urinalysis Comment CULT NOT INDICATED Urine Opiates Screen NEG Urine Barbiturates Screen NEG Urine Amphetamines Screen NEG Urine Benzodiazepines Screen NEG Urine Cocaine Screen NEG Urine Cannabinoids Screen POS MDM Medical Record Reviewed: Yes Supervised Visit with DUSTY: Yes Narrative Course Patient has been cleared by psychiatric staff. Patient is felt to be medically stable for discharge. Please see psychiatric discharge note for further plan of treatment. Diagnosis Primary Impression: Medical clearance for psychiatric admission Additional Impression: Alcohol intoxication Qualified Codes: F10.920 - Alcohol use, unspecified with intoxication, uncomplicated Patient Instructions: General Instructions Additional Instruction: Patient has been cleared by psychiatric staff. Patient is felt to be medically stable for discharge. Please see psychiatric discharge note for further plan of treatment. Scripts Hydrochlorothiazide (Hydrochlorothiazide) 12.5 Mg Tab 12.5 MG PO DAILY, #30 TAB 0 Refills Prov: Juliana Ramos 04/29/17 Lisinopril (Lisinopril) 20 Mg Tab 20 MG PO DAILY, #30 TAB 0 Refills Prov: Juliana Ramos 04/29/17 Disposition: 01 DISCHARGE HOME Condition: Stable John Verma Apr 30, 2017 14:31
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
[2017-04-30 15:16] VITALS: BP 160/72
== END 2017-04-30 15:15 | disposition home or self-care (01) ==
LOC: NEPD 11:41 → NEPJ 04-30 15:15
DX: F10.920 Alcohol use, unspecified with intoxication, uncomplicated (principal); I10 Essential (primary) hypertension; J45.909 Unspecified asthma, uncomplicated; K21.9 Gastro-esophageal reflux disease without esophagitis; Z59.0 Homelessness; Z86.73 Personal history of transient ischemic attack (TIA), and cerebral infarction without residual deficits
CPT/HCPCS: 80053; 80307; 81001; 84703; 85025; 99284

== ENCOUNTER 2017-08-31 10:53 | Emergency (ER) | payer BC ==
[~2017-08-31] VITALS: Ht 149.9 cm; Wt 50.0 kg
[~2017-08-31 10:53] MED LIST changes: +CLON0.3T PO; +HYDR12.56 PO; +LISI-515 PO
[2017-08-31 10:56] VITALS: BP 209/100; PULSE 75; RESP 14; TEMP 99.2; O2SAT 95
[2017-08-31 11:09] VITALS: BP 233/93; PULSE 63; RESP 20; O2SAT 98
[2017-08-31] MEDS ORDERED: SODIUM CHLORIDE 0.9% FLUSH 10 ML FLUSH IVF PRN (11:15)
--- NOTE | 2017-08-31 11:43 | PD ---
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) Diabetes: No Diminished Hearing: No Endocrine: No Gastrointestinal Disorders: Yes (IBS) GERD: Yes Genitourinary: No Headaches: Yes Heparin Induced Thrombocytopen: No Hypertension: Yes Immune Disorder: No Insomnia: Yes Musculoskeletal: No Neurologic: Yes Psychiatric: Yes Reproductive: No Respiratory: Yes Tetanus Vaccination: > 5 Years ?: Unknown LMP: 07/19/17 : 4 Para: 2 : 2 Past Surgical History Section: Yes (X 1) Coronary Artery Bypass Graft: No Other Surgery: Yes (I&D RECTAL ABSCESS) Family History Family Myocardial Infarction: No Social History Alcohol Use: Yes (WEEKENDS) Tobacco Use: Yes (black and mild when she drinks) Substance Use: No Allergies-Medications (Allergen,Severity, Reaction): Coded Allergies: hydrocodone (Unverified Allergy, Severe, Itching, 08/31/17) Reported Meds & Prescriptions Reported Meds & Active Scripts Active Review of Systems Cardiovascular: Positive: Chest Pain or Discomfort Physical Exam Narrative GENERAL: SKIN: Warm and dry. HEAD: Atraumatic. Normocephalic. EYES: Pupils equal and round. No scleral icterus. No injection or drainage. ENT: No nasal bleeding or discharge. Mucous membranes pink and moist. NECK: Trachea midline. No JVD. CARDIOVASCULAR: Regular rate and rhythm. RESPIRATORY: No accessory muscle use. Clear to auscultation. Breath sounds equal bilaterally. GASTROINTESTINAL: Abdomen soft, non-tender, nondistended. MUSCULOSKELETAL: Extremities without clubbing, cyanosis, or edema. No obvious deformities. NEUROLOGICAL: Awake and alert. No obvious cranial nerve deficits. Motor grossly within normal limits. Five out of 5 muscle strength in the RT arms and legs.(4/5 LEFT) Normal speech. PSYCHIATRIC: Appropriate mood and affect; insight and judgment normal. Data Data Last Documented VS Vital Signs Date Time Temp Pulse Resp B/P (MAP) Pulse Ox O2 Delivery O2 Flow Rate FiO2 08/31/17 12:27 60 186/91 (122) 08/31/17 11:15 99 Nasal Cannula 2.00 08/31/17 11:10 17 08/31/17 10:56 99.2 Orders Orders Electrocardiogram (08/31/17 ) Electrocardiogram (08/31/17 11:13) Complete Blood Count With Diff (08/31/17 11:13) Comprehensive Metabolic Panel (08/31/17 11:13) D-Dimer (08/31/17 11:13) Prothrombin Time / Inr (Pt) (08/31/17 11:13) Act Partial Throm Time (Ptt) (08/31/17 11:13) Troponin I (08/31/17 11:13) Lipase (08/31/17 11:13) Chest, Single Ap (08/31/17 11:13) Ecg Monitoring (08/31/17 11:13) Bilateral Bp Monitoring (08/31/17 11:13) Iv Access Insert/Monitor (08/31/17 11:13) Oximetry (08/31/17 11:13) Oxygen Administration (08/31/17 11:13) Sodium Chloride 0.9% Flush (Ns Flush) (08/31/17 11:15) Ct Brain W/O Iv Contrast(Rout) (08/31/17 11:41) Hydralazine Inj (Apresoline Inj) (08/31/17 11:45) Labs Laboratory Tests Test 08/31/17 11:40 White Blood Count 4.9 TH/MM3 Red Blood Count 4.10 MIL/MM3 Hemoglobin 13.3 GM/DL Hematocrit 37.8 % Mean Corpuscular Volume 92.4 FL Mean Corpuscular Hemoglobin 32.5 PG Mean Corpuscular Hemoglobin Concent 35.2 % Red Cell Distribution Width 14.0 % Platelet Count 255 TH/MM3 Mean Platelet Volume 8.6 FL Neutrophils (%) (Auto) 62.9 % Lymphocytes (%) (Auto) 24.6 % Monocytes (%) (Auto) 10.6 % Eosinophils (%) (Auto) 1.2 % Basophils (%) (Auto) 0.7 % Neutrophils # (Auto) 3.1 TH/MM3 Lymphocytes # (Auto) 1.2 TH/MM3 Monocytes # (Auto) 0.5 TH/MM3 Eosinophils # (Auto) 0.1 TH/MM3 Basophils # (Auto) 0.0 TH/MM3 CBC Comment DIFF FINAL Differential Comment Prothrombin Time 10.1 SEC Prothromb Time International Ratio 1.0 RATIO Activated Partial Thromboplast Time 27.3 SEC D-Dimer Quantitative (PE/DVT) 0.20 MG/L FEU Blood Urea Nitrogen 7 MG/DL Creatinine 0.69 MG/DL Random Glucose 89 MG/DL Total Protein 8.2 GM/DL Albumin 4.0 GM/DL Calcium Level 8.5 MG/DL Alkaline Phosphatase 109 U/L Aspartate Amino Transf (AST/SGOT) 23 U/L Alanine Aminotransferase (ALT/SGPT) 21 U/L Total Bilirubin 0.3 MG/DL Sodium Level 137 MEQ/L Potassium Level 3.4 MEQ/L Chloride Level 104 MEQ/L Carbon Dioxide Level 27.1 MEQ/L Anion Gap 6 MEQ/L Estimat Glomerular Filtration Rate 112 ML/MIN Troponin I LESS THAN 0.02 NG/ML Lipase 118 U/L MDM Medical Decision Making Medical Screen Exam Complete: Yes Emergency Medical Condition: Yes Medical Record Reviewed: Yes Interpretation(s) NSR 62, NL INTERVALS, NO STEMI PATTERN Diagnosis Primary Impression: Hypertension Qualified Codes: I10 - Essential (primary) hypertension Referrals: [facility] Patient Instructions: Chest Pain (ED), General Instructions, Hypertension (DC) Scripts Amlodipine (Amlodipine) 10 Mg Tab 10 MG PO DAILY for Blood Pressure Management, #30 TAB 1 Refill Prov: Benji Hines MD 08/31/17 Disposition: 01 DISCHARGE HOME Condition: Stable Benji Hines MD Aug 31, 2017 11:43
[2017-08-31] MEDS ORDERED: hydrALAZINE HCL 20 MG/ML VIAL IV PUSH ONE (11:45)
[2017-08-31 11:55] LABS: AUTOMATED NEUTROPHIL # 3.1 TH/MM3 (1.8-7.7); BASOPHIL % 0.7 % (0.0-2.0); EOSINOPHIL # 0.1 TH/MM3 (0-0.4); EOSINOPHIL % 1.2 % (0.0-4.0); HEMATOCRIT 37.8 % (35.0-46.0); HEMOGLOBIN 13.3 GM/DL (11.6-15.3); LYMPH % 24.6 % (9.0-44.0); LYMPHOCYTE # 1.2 TH/MM3 (1.0-4.8); MEAN CELL VOLUME 92.4 FL (80.0-100.0); MEAN CORPUSCULAR HEMOGLOBIN 32.5 PG (27.0-34.0); MEAN CORPUSCULAR HGB CONC 35.2 % (32.0-36.0); MEAN PLATELET VOLUME 8.6 FL (7.0-11.0); MONO % 10.6 % (0.0-8.0); MONOCYTE # 0.5 TH/MM3 (0-0.9); NEUT % 62.9 % (16.0-70.0); PLATELET COUNT 255 TH/MM3 (150-450); WHITE BLOOD COUNT 4.9 TH/MM3 (4.0-11.0)
--- NOTE | 2017-08-31 12:04 | RADRPT ---
EXAM DATE/TIME: 08/31/2017 11:16 [facility] COMPARISON: CHEST SINGLE AP, March 02, 2017, 1:50. INDICATIONS : Chest pain x 1 day. MEDICAL HISTORY : TIA. SURGICAL HISTORY : None. ENCOUNTER: Initial ACUITY: 1 day PAIN SCORE: 7/10 LOCATION: Bilateral chest FINDINGS: A single view of the chest demonstrates the lungs to be symmetrically aerated without evidence of mas s, infiltrate or effusion. The cardiomediastinal contours are unremarkable. Osseous structures are intact. CONCLUSION: No acute cardiopulmonary disease. Clifford Henderson MD on August 31, 2017 at 12:01 Board Certified Radiologist. This report was verified electronically.
[2017-08-31 12:05] LABS: D-DIMER 0.2 MG/L FEU (0.00-0.50); PROTHROMBIN TIME - PATIENT 10.1 SEC (9.8-11.6)
[2017-08-31 12:10] LABS: ALT (GPT) 21 U/L (10-53); AST (GOT) 23 U/L (15-37); BICARBONATE 27.1 MEQ/L (21.0-32.0); BLOOD UREA NITROGEN 7 MG/DL (7-18); CALCIUM 8.5 MG/DL (8.5-10.1); CHLORIDE 104 MEQ/L (98-107); CREATININE 0.69 MG/DL (0.50-1.00); GLOMERULAR FILTRATION RATE 112 ML/MIN (>89); GLUCOSE,RANDOM 89 MG/DL (74-106); LIPASE 118 U/L (73-393); SODIUM (NA) 137 MEQ/L (136-145)
[2017-08-31 12:14] LABS: ALKALINE PHOSPHATASE 109 U/L (45-117); TOTAL BILIRUBIN ADULT 0.3 MG/DL (0.2-1.0); TOTAL PROTEIN 8.2 GM/DL (6.4-8.2); TROPONIN I LESS THAN 0.02 NG/ML (0.02-0.05)
--- NOTE | 2017-08-31 12:20 | RADRPT ---
EXAM DATE/TIME: 08/31/2017 11:59 [facility] COMPARISON: No previous studies available for comparison. INDICATIONS : Left sided weakness today. RADIATION DOSE: 56.77 CTDIvol (mGy) MEDICAL HISTORY : Cardiovascular disease. Hypertension. SURGICAL HISTORY : None. ENCOUNTER: Initial ACUITY: 1 day PAIN SCALE: 0/10 LOCATION: Bilateral head TECHNIQUE: Multiple contiguous axial images were obtained of the head. Using automated exposure control and adj ustment of the mA and/or kV according to patient size, radiation dose was kept as low as reasonably a chievable to obtain optimal diagnostic quality images. DICOM format image data is available electro nically for review and comparison. FINDINGS: CEREBRUM: The ventricles are normal for age. No evidence of midline shift, mass lesion, hemorrhage or acute in farction. No extra-axial fluid collections are seen. POSTERIOR FOSSA: The cerebellum and brainstem are intact. The 4th ventricle is midline. The cerebellopontine angle i s unremarkable. EXTRACRANIAL: The visualized portion of the orbits is intact. SKULL: The calvaria is intact. No evidence of skull fracture. CONCLUSION: 1. No acute intracranial abnormalities. Augusto Cho MD on August 31, 2017 at 12:16 Board Certified Radiologist. This report was verified electronically.
[2017-08-31 12:27] VITALS: BP 186/91; PULSE 60
[2017-08-31] MEDS ORDERED: AMLO10TA2 PO (12:59)
[2017-08-31 13:03] VITALS: BP 180/90
--- NOTE | 2017-08-31 18:02 | EKG ---
Date Performed: 08/31/2017 Time Performed: 11:09:11 PTAGE: 46 years EKG: Sinus rhythm NORMAL ECG INTERPRETATION BASED ON A DEFAULT AGE OF 40 YEARS PREVIOUS TRACING 03/02/17 Compared to prior tracing no significant change DOCTOR: Urszula Tian Interpretating Date/Time 08/31/2017 18:01:18
== END 2017-08-31 14:01 | disposition home or self-care (01) ==
LOC: NEPE 10:53
DX: I10 Essential (primary) hypertension (principal); F17.200 Nicotine dependence, unspecified, uncomplicated
CPT/HCPCS: 70450; 71045; 80053; 83690; 84484; 85025; 85379; 85610; 85730; 93005; 96374; 99285; J0360

== ENCOUNTER 2017-10-20 22:32 | Emergency (ER) | payer SELFPAY ==
[~2017-10-20] VITALS: Ht 149.9 cm; Wt 52.0 kg
[~2017-10-20 22:32] MED LIST changes: +AMLO10TA2 PO; -CLON0.3T PO; -HYDR12.56 PO; -LISI-515 PO; -LISI20TA PO
[2017-10-20 22:34] VITALS: BP 184/87; PULSE 65; RESP 16; TEMP 96.9; O2SAT 99
[2017-10-20 23:41] VITALS: BP 180/83; PULSE 56; RESP 18; TEMP 98.5; O2SAT 100
[2017-10-20] MEDS ORDERED: AMOX500C PO (23:43)
[2017-10-21] MEDS ORDERED: KETOROLAC TROMETHAMINE 30 MG/ML (IVP) VIAL IV PUSH ONE
[2017-10-21] MEDS ORDERED: CLINDAMYCIN INJ 900 MG in SODIUM CHLORIDE 0.9% INJ 100 ML IV ONE ×2
[2017-10-21] MEDS ORDERED: SODIUM CHLOR 0.9% 1000 ML INJ 1,000 ML IV ONE
--- NOTE | 2017-10-21 00:42 | RADRPT ---
EXAM DATE/TIME: 10/21/2017 00:12 [facility] COMPARISON: No previous studies available for comparison. INDICATIONS : Left side facial swelling and difficulty breathing. RADIATION DOSE: 10.97 CTDIvol (mGy) MEDICAL HISTORY : Stroke. Hypertension. SURGICAL HISTORY : None. ENCOUNTER: Initial ACUITY: 2 days PAIN SCORE: 6/10 LOCATION: Left facial TECHNIQUE: Volumetric scanning of the neck was performed. Using automated exposure control and adjustment of th e mA and/or kV according to patient size, radiation dose was kept as low as reasonably achievable to obtain optimal diagnostic quality images. DICOM format image data is available electronically for re view and comparison. FINDINGS: NASOPHARYNX: The nasopharyngeal airway has a normal configuration. No mucosal thickening or mass is seen. OROPHARYNX: The intrinsic muscles of the tongue are symmetric. The tonsillar pillars are intact. The prevertebr al soft tissues are not thickened. LARYNX: The supraglottic, glottic, and infraglottic structures are intact. PARAPHARYNGEAL: The parapharyngeal space is intact. SALIVARY GLANDS: The parotid and submandibular glands are intact. LYMPH NODES: No enlarged or necrotic-appearing nodes. THYROID: Homogeneous enhancement without evidence of nodule. BONES: There are multiple metallic fillings with streak artifact there is mild soft tissue swelling over the left side of the mandible with no focal abscess. CONCLUSION: 1. Mild soft tissue swelling along the left side of the mandible with no focal abscess. 2. Multiple metallic fillings with streak artifact limiting visualization. 3. No adenopathy or mass on this noncontrast exam. Mick Goodman MD on October 21, 2017 at 0:37 Board Certified Radiologist. This report was verified electronically.
[2017-10-21] MEDS ORDERED: CLINDAMYCIN 900 MG/NS PREMIX 50 ML IV ONE (01:15)
[2017-10-21 01:17] LABS: AUTOMATED NEUTROPHIL # 5.9 TH/MM3 (1.8-7.7); BASOPHIL # 0.1 TH/MM3 (0-0.2); BASOPHIL % 0.5 % (0.0-2.0); EOSINOPHIL # 0.1 TH/MM3 (0-0.4); HEMATOCRIT 35.2 % (35.0-46.0); LYMPH % 28.9 % (9.0-44.0); LYMPHOCYTE # 2.8 TH/MM3 (1.0-4.8); MEAN CELL VOLUME 90.5 FL (80.0-100.0); MEAN CORPUSCULAR HGB CONC 34.2 % (32.0-36.0); MEAN PLATELET VOLUME 8.4 FL (7.0-11.0); MONO % 8.6 % (0.0-8.0); MONOCYTE # 0.8 TH/MM3 (0-0.9); PLATELET COUNT 343 TH/MM3 (150-450); RED BLOOD COUNT 3.89 MIL/MM3 (4.00-5.30); RED CELL DISTRIBUTION WIDTH 13.7 % (11.6-17.2); WHITE BLOOD COUNT 9.7 TH/MM3 (4.0-11.0)
[2017-10-21 01:23] LABS: BICARBONATE 27.5 MEQ/L (21.0-32.0); CALCIUM 9.2 MG/DL (8.5-10.1); CREATININE 0.62 MG/DL (0.50-1.00)
[2017-10-21 01:38] VITALS: BP 178/79; PULSE 58; RESP 18; O2SAT 99
[2017-10-21] MEDS ORDERED: ACET120S PO (02:13)
[2017-10-21] MEDS ORDERED: CLIN75SO PO (02:13)
--- NOTE | 2017-10-21 02:13 | PD ---
HPI Chief Complaint: Oral / Dental Pain or Problem Time Seen by Provider: 23:51 Travel History International Travel<30 days: No Contact w/Intl Traveler<30days: No Traveled to known affect area: No History of Present Illness HPI 47-year-old female complains of pain in the left face associated with swelling. She was given amoxicillin a few days ago and has been unable to take it due to worsening pain associated with mastication and opening of the jaw. Severity moderate. Timing constant. She denies fever. PFSH Past Medical History Asthma: Yes Anxiety: No Depression: Yes Heart Rhythm Problems: No Cancer: No Cardiac Catheterization: Yes ( 08-26-2012) Cardiovascular Problems: Yes High Cholesterol: No Congestive Heart Failure: No Cerebrovascular Accident: Yes (Has had 5 TIA's) Diabetes: No Diminished Hearing: No Endocrine: No Gastrointestinal Disorders: Yes (IBS) GERD: Yes Genitourinary: No Headaches: Yes Heparin Induced Thrombocytopen: No Hypertension: Yes Immune Disorder: No Insomnia: Yes Musculoskeletal: No Neurologic: Yes Psychiatric: Yes Reproductive: No Respiratory: Yes ?: Not LMP: 10/19/17 : 4 Para: 2 : 2 Dilation and Curettage (D&C): Yes (X2) Past Surgical History Section: Yes (X 1) Coronary Artery Bypass Graft: No Other Surgery: Yes (I&D RECTAL ABSCESS, EMERGENCY SX FOR ABCESS DRAINAGE IN THROAT) Social History Alcohol Use: Yes (WEEKENDS) Tobacco Use: Yes (1 BLACK AND MILD PER DAY) Substance Use: No Allergies-Medications (Allergen,Severity, Reaction): Coded Allergies: hydrocodone (Verified Allergy, Severe, Itching, 10/20/17) Reported Meds & Prescriptions Reported Meds & Active Scripts Active Amlodipine (Amlodipine Besylate) 10 Mg Tab 10 Mg PO DAILY Reported Amoxicillin 500 Mg Cap 500 Mg PO TID Review of Systems Except as stated in HPI: all other systems reviewed are Neg General / Constitutional: No: Fever Physical Exam Narrative GENERAL: 47-year-old female pleasant well-nourished well-developed MAXILLOFACIAL: The left face in the region of the induration tenderness and swelling consistent with dental infection. There is no induration of the submental or submandibular soft tissue or suggestion of Luis Angel angina otherwise. Patient states she is unable to open her mouth. Vital Signs Date Time Temp Pulse Resp B/P (MAP) Pulse Ox O2 Delivery O2 Flow Rate FiO2 10/21/17 01:38 58 18 178/79 (112) 99 Room Air 10/20/17 23:41 98.5 56 18 180/83 (115) 100 Room Air 10/20/17 22:34 96.9 65 16 184/87 (119) 99 Room Air SKIN: Warm and dry. HEAD: Atraumatic. Normocephalic. EYES: Pupils equal and round. No scleral icterus. No injection or drainage. ENT: No nasal bleeding or discharge. Mucous membranes pink and moist. NECK: Trachea midline. No JVD. CARDIOVASCULAR: Regular rate and rhythm. RESPIRATORY: No accessory muscle use. Clear to auscultation. Breath sounds equal bilaterally. GASTROINTESTINAL: Abdomen soft, non-tender, nondistended. Hepatic and splenic margins not palpable. MUSCULOSKELETAL: Extremities without clubbing, cyanosis, or edema. No obvious deformities. NEUROLOGICAL: Awake and alert. No obvious cranial nerve deficits. Motor grossly within normal limits. Five out of 5 muscle strength in the arms and legs. Normal speech. PSYCHIATRIC: Appropriate mood and affect; insight and judgment normal. Data Data Last Documented VS Vital Signs Date Time Temp Pulse Resp B/P (MAP) Pulse Ox O2 Delivery O2 Flow Rate FiO2 10/21/17 01:38 58 18 178/79 (112) 99 Room Air 10/20/17 23:41 98.5 Orders Orders Basic Metabolic Panel (Bmp) (10/20/17 23:54) Complete Blood Count With Diff (10/20/17 23:54) Iv Access Insert/Monitor (10/20/17 23:54) Sodium Chlor 0.9% 1000 Ml Inj (Ns 1000 M (10/21/17 00:00) Ct Soft Tiss Neck W/O Iv Cont (10/20/17 ) Ketorolac Inj (Toradol Inj) (10/21/17 00:00) Clindamycin 900 Mg/Ns Premix (Cleocin 90 (10/21/17 01:15) Labs Laboratory Tests Test 10/20/17 00:30 White Blood Count 9.7 TH/MM3 Red Blood Count 3.89 MIL/MM3 Hemoglobin 12.0 GM/DL Hematocrit 35.2 % Mean Corpuscular Volume 90.5 FL Mean Corpuscular Hemoglobin 31.0 PG Mean Corpuscular Hemoglobin Concent 34.2 % Red Cell Distribution Width 13.7 % Platelet Count 343 TH/MM3 Mean Platelet Volume 8.4 FL Neutrophils (%) (Auto) 61.0 % Lymphocytes (%) (Auto) 28.9 % Monocytes (%) (Auto) 8.6 % Eosinophils (%) (Auto) 1.0 % Basophils (%) (Auto) 0.5 % Neutrophils # (Auto) 5.9 TH/MM3 Lymphocytes # (Auto) 2.8 TH/MM3 Monocytes # (Auto) 0.8 TH/MM3 Eosinophils # (Auto) 0.1 TH/MM3 Basophils # (Auto) 0.1 TH/MM3 CBC Comment AUTO DIFF Differential Comment AUTO DIFF CONFIRMED Platelet Estimate NORMAL Platelet Morphology Comment NORMAL Blood Urea Nitrogen 6 MG/DL Creatinine 0.62 MG/DL Random Glucose 87 MG/DL Calcium Level 9.2 MG/DL Sodium Level 139 MEQ/L Potassium Level 3.6 MEQ/L Chloride Level 106 MEQ/L Carbon Dioxide Level 27.5 MEQ/L Anion Gap 6 MEQ/L Estimat Glomerular Filtration Rate 127 ML/MIN [facility] Medical Decision Making Medical Screen Exam Complete: Yes Emergency Medical Condition: Yes Medical Record Reviewed: Yes Differential Diagnosis Luis Angel angina, abscess, dislocation of the jaw, osteomyelitis, dentalgia Narrative Course CBC & BMP Diagram 10/20/17 00:30 Calcium Level 9.[address] 10/20/17 0000 Signed Impressions: Service Date/Time: September 00:12 - CONCLUSION: 1. Mild soft tissue swelling along the left side of the mandible with no focal abscess. 2. Multiple metallic fillings with streak artifact limiting visualization. 3. No adenopathy or mass on this noncontrast exam. Mick Goodman MD Patient reassessed 2:05 AM and found to be resting comfortably. Will provide the patient with oral antibiotics and oral pain medication. Return precautions discussed. Patient was quite pleased with the plan. We talked about return precautions in some detail and patient verbalized understanding. Diagnosis Primary Impression: Dental infection Referrals: Dentist call for appointment Med/Other Pt SpecificInfo: Prescription(s) given Scripts Acetaminophen-Codeine Liq (Tylenol-Codeine Elixir) 120-12 Mg/5 Ml Soln 10 ML PO Q6H Y for PAIN SCALE 6 TO 10 for 5 Days, #200 ML 0 Refills Prov: Ronald Mckeon MD 10/21/17 Clindamycin Liq (Clindamycin Liq) 75 Mg/5 Ml Soln 450 MG PO Q8HR for Infection for 10 Days, #100 ML 0 Refills Prov: Ronald Mckeon MD 10/21/17 Disposition: 01 DISCHARGE HOME Condition: Stable Ronald Mckeon MD Oct 21, 2017 02:13
== END 2017-10-21 02:44 | disposition home or self-care (01) ==
LOC: NEPC 22:32
DX: K04.7 Periapical abscess without sinus (principal); J45.909 Unspecified asthma, uncomplicated; F32.9 Major depressive disorder, single episode, unspecified; I10 Essential (primary) hypertension; F17.210 Nicotine dependence, cigarettes, uncomplicated; Z86.73 Personal history of transient ischemic attack (TIA), and cerebral infarction without residual deficits; Z88.5 Allergy status to narcotic agent
CPT/HCPCS: 70490; 80048; 85025; 96365; 96375; 99284; J1885; J7030

== ENCOUNTER 2017-10-26 18:44 | Inpatient (IN) | payer SELFPAY ==
[~2017-10-26 18:44] MED LIST changes: +ACET120S PO; +AMOX500C PO; +CLIN75SO PO
[2017-10-26 18:48] VITALS: BP 175/91; PULSE 67; RESP 14; TEMP 98.1; O2SAT 97
[2017-10-26 19:35] LABS: BASOPHIL # 0.1 TH/MM3 (0-0.2); BASOPHIL % 0.7 % (0.0-2.0); EOSINOPHIL % 0.3 % (0.0-4.0); HEMATOCRIT 36.7 % (35.0-46.0); HEMOGLOBIN 12.5 GM/DL (11.6-15.3); LYMPH % 20.9 % (9.0-44.0); LYMPHOCYTE # 2.7 TH/MM3 (1.0-4.8); MEAN CELL VOLUME 91.5 FL (80.0-100.0); MEAN CORPUSCULAR HEMOGLOBIN 31.1 PG (27.0-34.0); MONO % 8.5 % (0.0-8.0); MONOCYTE # 1.1 TH/MM3 (0-0.9); NEUT % 69.6 % (16.0-70.0); PLATELET COUNT 436 TH/MM3 (150-450); RED BLOOD COUNT 4.01 MIL/MM3 (4.00-5.30); RED CELL DISTRIBUTION WIDTH 14.3 % (11.6-17.2); WHITE BLOOD COUNT 12.9 TH/MM3 (4.0-11.0)
[2017-10-26] MEDS ORDERED: CLINDAMYCIN 900 MG/NS PREMIX 50 ML IV ONE (19:45)
[2017-10-26] MEDS ORDERED: SODIUM CHLOR 0.9% 1000 ML INJ 1,000 ML IV ONE (19:45)
[2017-10-26 19:49] LABS: PROTHROMBIN TIME - PATIENT 10.3 SEC (9.8-11.6)
[2017-10-26 19:53] LABS: ALBUMIN 3.9 GM/DL (3.4-5.0); AST (GOT) 9 U/L (15-37); BICARBONATE 32.1 MEQ/L (21.0-32.0); BLOOD UREA NITROGEN 7 MG/DL (7-18); CALCIUM 9.5 MG/DL (8.5-10.1); CHLORIDE 100 MEQ/L (98-107); GLOMERULAR FILTRATION RATE 73 ML/MIN (>89); GLUCOSE,RANDOM 90 MG/DL (74-106); SODIUM (NA) 137 MEQ/L (136-145)
--- NOTE | 2017-10-26 19:54 | PD ---
HPI Chief Complaint: Edema Time Seen by Provider: 19:14 Travel History International Travel<30 days: No Contact w/Intl Traveler<30days: No Traveled to known affect area: No History of Present Illness HPI The patient is a 47 year old female who presents to the [facility] emergency department with a history of dental problems that have been gradually getting worse over the last couple weeks. The patient reports that she did go to a dentist on October 15. She saw and was started on pain medication and antibiotic for a dental infection. She has had recurrent dental infections and sepsis related to a dental infection in the past. The patient reports that she was referred to [facility] for sedation and operative resection of 2 teeth that seem to be the culprit for recurrent infections. She reports that the appointment is on November 11, however she reports that she cannot afford to go. She has been seen in the emergency department regarding this infection worsening on October 21. She was given a prescription for clindamycin and Tylenol with codeine as a syrup and she reports that she was having difficulty opening her mouth to swallow her antibiotic pills and her pain pills. This was after the CT scan was done to further evaluate her head and neck for possible abscess. The patient reports that the antibiotic prescription for antibiotic syrup was only for 2 days and she completed this. She reports that since then she has had difficulty getting the pills in her mouth again. She reports that today she has noticed that the swelling has progressed up into her cheek and near her left ear. She reports that she has difficulty opening her mouth to even get a straw and to drink liquids at this point. She denies any recent fevers, however she has been taking Tylenol with codeine on a regular basis for the pain. On review of systems otherwise, she denies having any cough, congestion, chest pain, shortness of breath, abdominal pain, vomiting, diarrhea, urinary symptoms, or neurologic symptoms. [facility] Past Medical History Narrative Medical The patient's past medical history is significant for hypertension, currently noncompliant with medication regimen over the last 2 weeks that she reports that she cannot get her blood pressure pills in her mouth, history of a heart murmur, history of bipolar disorder, history of TIAs 5, history of dental infections that are recurrent with sepsis, asthma, irritable bowel syndrome, acid reflux. Asthma: Yes Anxiety: No Depression: Yes Heart Rhythm Problems: No Cancer: No Cardiac Catheterization: Yes ( 08-26-2012) Cardiovascular Problems: Yes (HTN) High Cholesterol: No Congestive Heart Failure: No Cerebrovascular Accident: Yes (Has had 5 TIA's) Diabetes: No Diminished Hearing: No Endocrine: No Gastrointestinal Disorders: Yes (IBS) GERD: Yes Genitourinary: No Headaches: Yes Heparin Induced Thrombocytopen: No Hypertension: Yes Immune Disorder: No Insomnia: Yes Musculoskeletal: No Neurologic: Yes Psychiatric: Yes Reproductive: No Respiratory: Yes Tetanus Vaccination: Unknown Influenza Vaccination: No ?: Not : 4 Para: 2 : 2 Dilation and Curettage (D&C): Yes (X2) Past Surgical History Narrative Surgical The patient's past surgical history is significant for a , incision and drainage of a rectal abscess, drainage of dental abscess. Section: Yes (X 1) Coronary Artery Bypass Graft: No Other Surgery: Yes (I&D RECTAL ABSCESS, EMERGENCY SX FOR ABCESS DRAINAGE IN THROAT) Social History Alcohol Use: Yes (WEEKENDS) Tobacco Use: Yes (1 BLACK AND MILD PER DAY) Substance Use: No Allergies-Medications (Allergen,Severity, Reaction): Coded Allergies: hydrocodone (Verified Allergy, Severe, Itching, 10/26/17) Reported Meds & Prescriptions Reported Meds & Active Scripts Active Tylenol-Codeine Elixir (Acetaminophen-Codeine Liq) 120-12 Mg/5 Ml Soln 10 Ml PO Q6H PRN 5 Days Clindamycin Liq 75 Mg/5 Ml Soln 450 Mg PO Q8HR 10 Days Amlodipine (Amlodipine Besylate) 10 Mg Tab 10 Mg PO DAILY Reported Amoxicillin 500 Mg Cap 500 Mg PO TID Review of Systems Except as stated in HPI: all other systems reviewed are Neg General / Constitutional: No: Fever Eyes: No: Visual changes HENT: Positive: Headaches, Dental Difficulties, Earache, No: Gingival Bleeding Cardiovascular: No: Chest Pain or Discomfort Respiratory: No: Shortness of Breath Gastrointestinal: No: Abdominal Pain Genitourinary: No: Dysuria Musculoskeletal: No: Pain Skin: No Rash Neurologic: Positive: Headache (Left side of head near her dental infection), No: Weakness, Focal Abnormalities, Change in Mentation, Slurred Speech, Sensory Disturbance Psychiatric: No: Depression Endocrine: No: Polydipsia Hematologic/Lymphatic: No: Easy Bruising Physical Exam Narrative General: The patient is a well-developed well-nourished female in no acute distress. Head and Neck exam: Head is normocephalic atraumatic. Eyes: EOMI, pupils are equal round and reactive to light. Nose: Midline septum with pink mucous membranes Mouth: Dentition is poor throughout her mouth. The patient has multiple areas of decay. The patient has difficulty opening her mouth larger than half a centimeter. Moist mucus membranes. Posterior oropharynx is difficult to visualize due to the fact that the patient cannot open her mouth more than a half a centimeter. What is visualized appears to be patent. The patient has swelling to the left side of the face, left jaw Neck: No palpable lymphadenopathy. No nuchal rigidity. No thyromegaly. Cardiovascular: Regular rate and rhythm without murmurs, gallops, or rubs. Lungs: Clear to auscultation bilaterally. No wheezes, rhonchi, or rales. Abdomen: Soft, without tenderness to palpation in all 4 quadrants of the abdomen. No guarding, rebound, or rigidity. Normal bowel sounds are audible. No tenderness on palpation of McBurney's point. Negative Lewis sign. Extremities: No clubbing, cyanosis, or edema. 2+ pulses in all 4 extremities. No calf tenderness on palpation. Back: No costovertebral angle tenderness to palpation. Neurologic Exam: Grossly nonfocal. Skin Exam: No rash noted. Intact skin that is warm and dry. Data Data Last Documented VS Vital Signs Date Time Temp Pulse Resp B/P (MAP) Pulse Ox O2 Delivery O2 Flow Rate FiO2 10/26/17 19:18 Room Air 10/26/17 18:48 98.1 67 14 175/91 (119) 97 Orders Orders Complete Blood Count With Diff (10/26/17 18:50) Comprehensive Metabolic Panel (10/26/17 18:50) Coag Profile (10/26/17 18:51) Electrocardiogram (10/26/17 19:33) Blood Culture (10/26/17 19:33) C-Reactive Protein (Crp) (10/26/17 19:33) Urinalysis - C+S If Indicated (10/26/17 19:33) Chest, Single Ap (10/26/17 19:33) Iv Access Insert/Monitor (10/26/17 19:33) Ecg Monitoring (10/26/17 19:33) Oximetry (10/26/17 19:33) Ed Urine Pregnancytest Poc (10/26/17 19:33) Ct Facial Bones W Iv Contrast (10/26/17 ) Lactic Acid Sepsis Protocol (10/26/17 19:33) Sodium Chlor 0.9% 1000 Ml Inj (Ns 1000 M (10/26/17 19:45) Clindamycin 900 Mg/Ns Premix (Cleocin 90 (10/26/17 19:45) Ketorolac Inj (Toradol Inj) (10/26/17 20:00) Potassium Chloride Eff (K-Lyte Cl Eff) (10/26/17 20:45) Iohexol 350 Inj (Omnipaque 350 Inj) (10/26/17 20:32) Admit Order (Ed Use Only) (10/26/17 21:39) Labs Laboratory Tests Test 10/26/17 18:55 10/26/17 19:50 10/26/17 21:16 White Blood Count 12.9 TH/MM3 Red Blood Count 4.01 MIL/MM3 Hemoglobin 12.5 GM/DL Hematocrit 36.7 % Mean Corpuscular Volume 91.5 FL Mean Corpuscular Hemoglobin 31.1 PG Mean Corpuscular Hemoglobin Concent 34.0 % Red Cell Distribution Width 14.3 % Platelet Count 436 TH/MM3 Mean Platelet Volume 8.0 FL Neutrophils (%) (Auto) 69.6 % Lymphocytes (%) (Auto) 20.9 % Monocytes (%) (Auto) 8.5 % Eosinophils (%) (Auto) 0.3 % Basophils (%) (Auto) 0.7 % Neutrophils # (Auto) 9.0 TH/MM3 Lymphocytes # (Auto) 2.7 TH/MM3 Monocytes # (Auto) 1.1 TH/MM3 Eosinophils # (Auto) 0.0 TH/MM3 Basophils # (Auto) 0.1 TH/MM3 CBC Comment DIFF FINAL Differential Comment Prothrombin Time 10.3 SEC Prothromb Time International Ratio 1.0 RATIO Activated Partial Thromboplast Time 25.1 SEC Blood Urea Nitrogen 7 MG/DL Creatinine 1.00 MG/DL Random Glucose 90 MG/DL Total Protein 8.1 GM/DL Albumin 3.9 GM/DL Calcium Level 9.5 MG/DL Alkaline Phosphatase 108 U/L Aspartate Amino Transf (AST/SGOT) 9 U/L Alanine Aminotransferase (ALT/SGPT) 12 U/L Total Bilirubin 0.2 MG/DL Sodium Level 137 MEQ/L Potassium Level 3.3 MEQ/L Chloride Level 100 MEQ/L Carbon Dioxide Level 32.1 MEQ/L Anion Gap 5 MEQ/L Estimat Glomerular Filtration Rate 73 ML/MIN C-Reactive Protein 1.08 MG/DL Lactic Acid Level 1.6 mmol/L Urine Color LIGHT-YELLOW Urine Turbidity CLEAR Urine pH 7.5 Urine Specific [place] 1.028 Urine Protein NEG mg/dL Urine Glucose (UA) NEG mg/dL Urine Ketones NEG mg/dL Urine Occult Blood NEG Urine Nitrite NEG Urine Bilirubin NEG Urine Urobilinogen LESS THAN 2.0 MG/DL Urine Leukocyte Esterase SMALL Urine RBC 2 /hpf Urine WBC 4 /hpf Urine Squamous Epithelial Cells 2 /hpf Microscopic Urinalysis Comment CULT NOT INDICATED MDM Medical Decision Making Medical Screen Exam Complete: Yes Emergency Medical Condition: Yes Medical Record Reviewed: Yes Interpretation(s) Last Impressions Chest X-Ray 10/26/17 1933 Signed Impressions: Service Date/Time: Thursday, October 26, 2017 19:53 - CONCLUSION: 1. No acute cardiopulmonary disease. Clifford Henderson MD Maxillofacial CT 10/26/17 0000 Signed Impressions: Service Date/Time: Thursday, October 26, 2017 20:16 - CONCLUSION: 1. Findings of subperiosteal abscess on the left deep to the masseter muscle likely related to dental disease with osteomyelitis in the left mandible. Clifford Henderson MD Differential Diagnosis Dental abscess, versus lymphadenopathy, versus osteomyelitis of the jaw Narrative Course During the course of the patient's emergency department visit, the patient's history, examination, and differential diagnosis were reviewed with the patient. The patient was placed on a surveillance monitor with oximetry and frequent blood pressure monitoring. The patient had IV access obtained and blood work sent for analysis. The patient will have a CT scan of the facial bones with IV contrast to further evaluate for possible abscess formation versus osteomyelitis. The patient's electronic medical record was reviewed. Blood cultures 2 were ordered, lactic acid was sent for analysis, CRP was ordered. The patient was initially provided normal saline 1 L IV fluid bolus, clindamycin 900 mg IV. The patient's laboratory studies were reviewed and remarkable for a white count of 12.9, hemoglobin 12.5, platelets 436 with 8.5 monocytes, CMP is remarkable for potassium of 3.3 which was supplemented orally, CO2 32.1, GFR 73, AST 9, C- reactive protein 1.08, lactic acid 1.6, PT 10.3, PTT 25.1, urinalysis shows small leukocyte esterase otherwise unremarkable Radiology studies were reviewed and remarkable for a chest x-ray that shows no acute cardiopulmonary disease. CT scan of the maxillofacial bones with IV contrast reveals findings of subperiosteal abscess in the left deep to the masseter muscle likely related to dental disease with osteomyelitis in the left mandible. A call was placed out to the maxillofacial surgeon on-call regarding this. He spoke to Dr. Adams regarding this. He reports that he specializes in plastic surgery and not dental care, therefore he would not be able to address this patient's teeth, however he is unsure if 1 of the other maxillofacial surgeons is sr technical sales consultant in the morning that specializes in dentition and would be able to address the patient's issues. The patient will be admitted to the hospital, treated with IV antibiotics, given IV fluids due to a faculty opening her mouth to eat and drink. The patient's results were discussed with the patient, including the plan of care. I explained that further testing and/ or monitoring is indicated based on the patient's history, examination, and/ or laboratory findings. Therefore, I recommended admission for additional evaluation. The patient expressed understanding and was agreeable with this plan. The patient was admitted to the hospital in stable condition and sent to a bed under the care of the [facility] service. Physician Communication Physician Communication The patient's case including history, pertinent physical examination findings, and laboratory studies were discussed with Dr. Ayala. It was agreed that the patient would be admitted to the [facility] service. Diagnosis Primary Impression: Osteomyelitis of mandible Additional Impression: Periapical abscess Admitting Information Admitting Physician Requests: Admit Danika Davis MD Oct 26, 2017 19:54
[2017-10-26 19:56] LABS: ALKALINE PHOSPHATASE 108 U/L (45-117); ALT (GPT) 12 U/L (10-53); TOTAL BILIRUBIN ADULT 0.2 MG/DL (0.2-1.0); TOTAL PROTEIN 8.1 GM/DL (6.4-8.2)
[2017-10-26] MEDS ORDERED: KETOROLAC TROMETHAMINE 30 MG/ML (IVP) VIAL IV PUSH ONE (20:00)
[2017-10-26] MEDS ORDERED: IOHEXOL 350 MG/ML 10 ML VIAL (for RAD DIAG) IVCONTRAST ONE (20:32)
--- NOTE | 2017-10-26 20:32 | RADRPT ---
EXAM DATE/TIME: 10/26/2017 19:53 [facility] COMPARISON: CHEST SINGLE AP, August 31, 2017, 11:16. INDICATIONS : Cough, congestion, shortness of breath. MEDICAL HISTORY : Hypertension. SURGICAL HISTORY : None. ENCOUNTER: Initial ACUITY: 2 weeks PAIN SCORE: 0/10 LOCATION: Bilateral chest FINDINGS: A single view of the chest demonstrates the lungs to be symmetrically aerated without evidence of mas s, infiltrate or effusion. The cardiomediastinal contours are unremarkable. Osseous structures are intact. CONCLUSION: 1. No acute cardiopulmonary disease. Clifford Henderson MD on October 26, 2017 at 20:28 Board Certified Radiologist. This report was verified electronically.
[2017-10-26] MEDS ORDERED: POTASSIUM CHLORIDE 25 MEQ EFFERVESCENT TAB PO ONE (20:45)
--- NOTE | 2017-10-26 21:03 | RADRPT ---
EXAM DATE/TIME: 10/26/2017 20:16 [facility] COMPARISON: No previous studies available for comparison. INDICATIONS : Facial swelling. IV CONTRAST: 65 cc Omnipaque 350 (iohexol) IV RADIATION DOSE: 38.16 CTDIvol (mGy) MEDICAL HISTORY : Cardiovascular disease. Hypertension. Stroke. SURGICAL HISTORY : None. ENCOUNTER: Initial ACUITY: 1 day PAIN SCALE: 5/10 LOCATION: Left facial TECHNIQUE: Volumetric scanning of the facial bones was performed. Using automated exposure control and adjustme nt of the mA and/or kV according to patient size, radiation dose was kept as low as reasonably achiev able to obtain optimal diagnostic quality images. DICOM format image data is available electronicall y for review and comparison. FINDINGS: There is a 3.4 x 1 cm fluid collection deep to the masseter muscle on the left cavernous tic of absce ss like related to dental disease in this patient with a cortical defect at the level of a molar late rally with a periapical abscess. There is no encroachment on the airway or involvement of the medial or lateral pterygoid. The oropharynx is intact. There are findings of cellulitis adjacent to this as well as enlarged lymph nodes in group 2 on the left. CONCLUSION: 1. Findings of subperiosteal abscess on the left deep to the masseter muscle likely related to dental disease with osteomyelitis in the left mandible. Clifford Henderson MD on October 26, 2017 at 20:55 Board Certified Radiologist. This report was verified electronically.
[2017-10-26 21:20] LABS: BILIRUBIN, URINE NEG (NEG); BLOOD, URINE NEG (NEG); GLUCOSE,URINE NEG (NEG); KETONE, URINE NEG (NEG); NITRITE,URINE NEG (NEG); PH, URINE 7.5 (5.0-8.5); SQUAMOUS EPITHELIAL CELL URINE 2 /hpf (0-5); URINE COLOR LIGHT-YELLOW (YELLW/STRAW); URINE LEUKOCYTE ESTERASE SMALL (NEG)
[2017-10-27] VITALS (7 sets, daily range): BP systolic 132–186; BP diastolic 67–94; PULSE 58–82; RESP 16–18; TEMP 97.3–98.4; O2SAT 98–100
[2017-10-27] MEDS ORDERED: NALOXONE HCL 0.4 MG/ML AMP IV PUSH PRN (04:15)
[2017-10-27] MEDS ORDERED: SODIUM CHLORIDE 0.9% FLUSH 10 ML FLUSH IV FLUSH PRN (04:15)
[2017-10-27] MEDS ORDERED: ACETAMINOPHEN 325 MG TAB PO PRN (04:15)
[2017-10-27] MEDS ORDERED: ONDANSETRON HCL 4 MG/2 ML VIAL IVP PRN (04:15)
[2017-10-27] MEDS ORDERED: MORPHINE SULFATE 4 MG/ML INJ IV PUSH PRN (04:15)
[2017-10-27] MEDS: MORPHINE SULFATE 4 MG/ML INJ IV PUSH PRN ×6 (04:23→23:24)
[2017-10-27] MEDS: SODIUM CHLOR 0.9% 1000 ML INJ 1,000 ML IV SCH ×2 (04:30→14:00)
[2017-10-27] MEDS ORDERED: CLINDAMYCIN 900 MG/NS PREMIX 50 ML IV SCH (06:00)
[2017-10-27] MEDS ORDERED: VANCOMYCIN INJ 1,000 MG in SODIUM CHLOR 0.9% 250 ML INJ 250 ML IV ONE (06:15)
[2017-10-27] MEDS ORDERED: cloNIDine HCL 0.1 MG TAB PO ONE (06:45)
[2017-10-27] MEDS: PIPERACIL-TAZO 3.375 GM PREMIX 50 ML IV SCH ×4 (06:51→23:24)
[2017-10-27] MEDS ORDERED: SODIUM CHLORIDE 0.9% FLUSH 10 ML FLUSH IV FLUSH SCH (09:00)
--- NOTE | 2017-10-27 09:09 | HHI.HP ---
[facility] Unknown Admission Diagnosis Left mandible osteomyelitis, left masseter abscess Diagnoses: Chief Complaint: left tooth/gum infection Travel History International Travel<30 Days: No Contact w/Intl Traveler <30 Da: No Traveled to Known Affected Are: No History of Present Illness This is a 47-year-old female past medical history of poor oral hygiene and previous dental abscess who presented with left sided tooth pain and swelling of the jaw. Patient stated that this occurred about 2 weeks ago when she had left-sided tooth pain and or surgeon. Patient was given amoxicillin and pain medication and will schedule for an extraction of teeth 17 and 19 on November 11. Patient stated that she only took 2 days of amoxicillin but the swelling increase so she initially went to [facility] but was discharged so came here. Patient also stated that she is not able to afford the procedure. Patient stated that she cannot open her mouth and she is having difficulty breathing. Patient was also given clindamycin but did not take any of that medication. Denies any fevers or chills. A year ago she had abscess drainage and was septic for similar conditions. All other review of system reviewed and negative. Past Family Social History Past Medical History Multiple dental infection Hypertension Past Surgical History Status post abscess drainage of gums Reported Medications Tylenol-Codeine Elixir (Acetaminophen-Codeine Liq) 120-12 Mg/5 Ml Soln 10 Ml PO Q6H PRN 5 Days Clindamycin Liq 75 Mg/5 Ml Soln 450 Mg PO Q8HR 10 Days Amlodipine (Amlodipine Besylate) 10 Mg Tab 10 Mg PO DAILY Amoxicillin 500 Mg Cap 500 Mg PO TID Allergies: Coded Allergies: hydrocodone (Verified Allergy, Severe, Itching, 10/26/17) Active Ordered Medications Current Medications Sodium Chloride 1,000 ml @ 1,000 mls/hr Q1H ONCE IV Last administered on at 19:57; Start 10/26/17 at 19:45; Stop 10/26/17 at 20:44; Status DC Clindamycin/ Sodium Chloride 50 ml @ 100 mls/hr ONCE ONCE IV Last administered on 10/26/17at 19:57; Start 10/26/17 at 19:45; Stop 10/26/17 at 20:14 ; Status DC Ketorolac Tromethamine (Toradol Inj) 15 mg ONCE ONCE IV PUSH Last administered on 10/26/17at 20:03; Start 10/26/17 at 20:00; Stop 10/26/17 at 20:01 ; Status DC Iohexol (Omnipaque 350 Inj) 65 ml STK-MED ONCE IVCONTRAST Last administered on 10/26/17at 20:32; Start 10/26/17 at 20:32; Stop 10/26/17 at 20:33; Status DC Potassium Bicarb/ Potassium Chloride (K-Lyte Cl Eff) 25 meq ONCE ONCE PO Last administered on 10/26/17at 21:34; Start 10/26/17 at 20:45; Stop 10/26/17 at 20:46; Status DC Sodium Chloride 1,000 ml @ 100 mls/hr Q10H IV Last administered on 10/27/17at 04:30; Start 10/27/17 at 04:09 Sodium Chloride (NS Flush) 2 ml UNSCH PRN IV FLUSH FLUSH AFTER USING IV ACCESS ; Start 10/27/17 at 04:15 Sodium Chloride (NS Flush) 2 ml BID IV FLUSH ; Start 10/27/17 at 09:00 Acetaminophen (Tylenol) 650 mg Q4H PRN PO TEMP > 100.4; Start 10/27/17 at 04:15 Ondansetron HCl (Zofran Inj) 4 mg Q6H PRN IVP NAUSEA OR VOMITING; Start at 04:15 Naloxone HCl (Narcan Inj) 0.4 mg UNSCH PRN IV PUSH SEE LABEL COMMENTS; Start at 04:15 Morphine Sulfate (Morphine Inj) 2 mg Q3H PRN IV PUSH pain 1-5; Start 10/27/17 at 04:15 Morphine Sulfate (Morphine Inj) 4 mg Q3H PRN IV PUSH pain 6-10 Last administered on 10/27/17at 07:43; Start 10/27/17 at 04:15 Clindamycin/ Sodium Chloride 50 ml @ 100 mls/hr Q6H IV ; Start 10/27/17 at 06: 00; Stop 10/27/17 at 06:05; Status DC Vancomycin HCl 1000 mg/Sodium Chloride 250 ml @ 250 mls/hr ONCE ONCE IV Last administered on 10/27/17at 07:53; Start 10/27/17 at 06:15; Stop 10/27/17 at 07:14 ; Status DC Piperacillin Sod/ Tazobactam Sod 50 ml @ 100 mls/hr Q6H IV Last administered on 10/27/17at 06:51; Start 10/27/17 at 06:00 Clonidine (Catapres) 0.1 mg ONCE ONCE PO Last administered on 10/27/17at 06:50 ; Start 10/27/17 at 06:45; Stop 10/27/17 at 06:46; Status DC Family History Patient's mother history of hypertension. Social History Smoke a cigar once a day for the past 10 years. Occasionally drinks alcohol. Denies illicit drug use. Physical Exam Vital Signs Vital Signs Date Time Temp Pulse Resp B/P (MAP) Pulse Ox O2 Delivery O2 Flow Rate FiO2 10/27/17 07:29 97.4 63 18 180/94 (122) 98 10/27/17 04:00 98.4 60 18 186/86 (119) 98 10/27/17 00:34 10/27/17 00:02 82 16 132/84 (100) 100 Room Air 10/27/17 00:00 97.4 58 18 168/92 (117) 98 10/26/17 19:18 Room Air 10/26/17 18:48 98.1 67 14 175/91 (119) 97 Physical Exam GENERAL: This is a well-nourished, well-developed patient, in no apparent distress. SKIN: No rashes, ecchymoses or lesions. Cool and dry. HEAD: Atraumatic. Normocephalic. No temporal or scalp tenderness. EYES: Pupils equal round and reactive. Extraocular motions intact. No scleral icterus. No injection or drainage. ENT: unable to open her mouth completely due to pain. Positive swelling of the left side of jaw along with induration. No erythema noted. Positive tenderness to palpation. Uvula midline. Airway patent. NECK: Trachea midline. No JVD or lymphadenopathy. Supple, nontender, no meningeal signs. CARDIOVASCULAR: Regular rate and rhythm without murmurs, gallops, or rubs. RESPIRATORY: Clear to auscultation. Breath sounds equal bilaterally. No wheezes , rales, or rhonchi. GASTROINTESTINAL: Abdomen soft, non-tender, nondistended. No hepato-splenomegaly , or palpable masses. No guarding. MUSCULOSKELETAL: Extremities without clubbing, cyanosis, or edema. No joint tenderness, effusion, or edema noted. No calf tenderness. Negative Homans sign bilaterally. NEUROLOGICAL: Awake and alert. Cranial nerves II through XII intact. Motor and sensory grossly within normal limits. Five out of 5 muscle strength in all muscle groups. Normal speech. Laboratory Laboratory Tests Test 10/26/17 18:55 10/26/17 19:50 10/26/17 21:16 White Blood Count 12.9 Red Blood Count 4.01 Hemoglobin 12.5 Hematocrit 36.7 Mean Corpuscular Volume 91.5 Mean Corpuscular Hemoglobin 31.1 Mean Corpuscular Hemoglobin Concent 34.0 Red Cell Distribution Width 14.3 Platelet Count 436 Mean Platelet Volume 8.0 Neutrophils (%) (Auto) 69.6 Lymphocytes (%) (Auto) 20.9 Monocytes (%) (Auto) 8.5 Eosinophils (%) (Auto) 0.3 Basophils (%) (Auto) 0.7 Neutrophils # (Auto) 9.0 Lymphocytes # (Auto) 2.7 Monocytes # (Auto) 1.1 Eosinophils # (Auto) 0.0 Basophils # (Auto) 0.1 CBC Comment DIFF FINAL Differential Comment Prothrombin Time 10.3 Prothromb Time International Ratio 1.0 Activated Partial Thromboplast Time 25.1 Blood Urea Nitrogen 7 Creatinine 1.00 Random Glucose 90 Total Protein 8.1 Albumin 3.9 Calcium Level 9.5 Alkaline Phosphatase 108 Aspartate Amino Transf (AST/SGOT) 9 Alanine Aminotransferase (ALT/SGPT) 12 Total Bilirubin 0.2 Sodium Level 137 Potassium Level 3.3 Chloride Level 100 Carbon Dioxide Level 32.1 Anion Gap 5 Estimat Glomerular Filtration Rate 73 C-Reactive Protein 1.08 Lactic Acid Level 1.6 Urine Color LIGHT-YELLOW Urine Turbidity CLEAR Urine pH 7.5 Urine Specific [place] 1.028 Urine Protein NEG Urine Glucose (UA) NEG Urine Ketones NEG Urine Occult Blood NEG Urine Nitrite NEG Urine Bilirubin NEG Urine Urobilinogen LESS THAN 2.0 Urine Leukocyte Esterase SMALL Urine RBC 2 Urine WBC 4 Urine Squamous Epithelial Cells 2 Microscopic Urinalysis Comment CULT NOT INDICATED Date/Time Source Procedure Growth Status 10/26/17 19:50 Blood Peripheral Aerobic Blood Culture Pending Received 10/26/17 19:50 Blood Peripheral Anaerobic Blood Culture Pending Received Result Diagram: 10/26/17185410/26/171854 Imaging Last Impressions Chest X-Ray 10/26/17 193 Signed Impressions: Service Date/Time: Thursday, October 26, 2017 19:53 - CONCLUSION: 1. No acute cardiopulmonary disease. Clifford Henderson MD Maxillofacial CT 10/26/17 0000 Signed Impressions: Service Date/Time: Thursday, October 26, 2017 20:16 - CONCLUSION: 1. Findings of subperiosteal abscess on the left deep to the masseter muscle likely related to dental disease with osteomyelitis in the left mandible. MD Mario Dale VTE Risk Assessment Mario VTE Risk Assessment: No/Low Risk (score <= 1) Caprini Risk Assessment Model Point Value = 1 Point Value = 2 Point Value = 3 Point Value = 5 Age 41-60 Minor surgery BMI > 25 kg/m2 Swollen legs Varicose veins or History of unexplained or recurrent spontaneous Oral contraceptives or hormone replacement Sepsis (< 1 month) Serious lung disease, including pneumonia (< 1 month) Abnormal pulmonary function Acute myocardial infarction Congestive heart failure (< 1 month) History of inflammatory bowel disease Medical patient at bed rest Age 61-74 Arthroscopic surgery Major open surgery (> 45 min) Laparoscopic surgery (> 45 min) Malignancy Confined to bed (> 72 hours) Immobilizing plaster cast Central venous access Age >= 75 History of VTE Family history of VTE Factor V Leiden Prothrombin [id number] Lupus anticoagulant Anticardiolipin antibodies Elevated serum homocysteine Heparin-induced thrombocytopenia Other congenital or acquired thrombophilia Stroke (< 1 month) Elective arthroplasty Hip, pelvis, or leg fracture Acute spinal cord injury (< 1 month) Prophylaxis Regimen Total Risk Factor Score Risk Level Prophylaxis Regimen 0-1 Low Early ambulation 2 Moderate Order ONE of the following: *Sequential Compression Device (SCD) *Heparin 5000 units SQ BID 3-4 Higher Order ONE of the following medications: *Heparin 5000 units SQ TID *Enoxaparin/Lovenox 40 mg SQ daily (WT < 150 kg, CrCl > 30 mL/min) *Enoxaparin/Lovenox 30 mg SQ daily (WT < 150 kg, CrCl > 10-29 mL/min) *Enoxaparin/Lovenox 30 mg SQ BID (WT < 150 kg, CrCl > 30 mL/min) AND/OR *Sequential Compression Device (SCD) 5 or more Highest Order ONE of the following medications: *Heparin 5000 units SQ TID (Preferred with Epidurals) *Enoxaparin/Lovenox 40 mg SQ daily (WT < 150 kg, CrCl > 30 mL/min) *Enoxaparin/Lovenox 30 mg SQ daily (WT < 150 kg, CrCl > 10-29 mL/min) *Enoxaparin/Lovenox 30 mg SQ BID (WT < 150 kg, CrCl > 30 mL/min) AND *Sequential Compression Device (SCD) Assessment and Plan Assessment and Plan This is a 47-year-old female with a history of dental abscess and poor oral hygiene who presented with left-sided tooth pain and swelling Left sided jaw swelling and pain -Outpatient oral surgeon recommended to take amoxicillin and patient was scheduled for extraction of teeth 17 and 19 on November 11, 2017. Fail outpatient treatment symptoms are worsening. -CT scan shows subperiosteal abscess in left deep masseter muscle with osteomyelitis of the left mandible. Labs reviewed with mild leukocytosis of 12, 000 CRP 1.08. -No oral surgeon show operations supervisor. Will talk to Dr. Cruz to see if he would see patient. If not we will need to transfer patient to [facility]. -Patient was given clindamycin in the ED and was started on vancomycin and Zosyn. Will continue vancomycin and Zosyn. -At the moment there is no airway compromise. We will also manage her pain and give supportive care with IV fluids. HTN -Due to the severity of the swelling patient unable take oral intake. Will give as needed IV antihypertensive medication. DVT prophylaxis -SCDs and encourage ambulation. Physician Certification 2 Midnight Certification Type: Admission for Inpatient Services Order for Inpatient Services The services are ordered in accordance with Medicare regulations or non- Medicare payer requirements, as applicable. In the case of services not specified as inpatient-only, they are appropriately provided as inpatient services in accordance with the 2-midnight benchmark. Estimated LOS (days): 5 5 days is the estimated time the patient will need to remain in the hospital, assuming treatment plan goals are met and no additional complications. Post-Hospital Plan: Courtney Gibbons MD Oct 27, 2017 09:09
[2017-10-27 09:28] LABS: AUTOMATED NEUTROPHIL # 9.3 TH/MM3 (1.8-7.7); BASOPHIL % 0.3 % (0.0-2.0); EOSINOPHIL % 0.3 % (0.0-4.0); HEMATOCRIT 34.1 % (35.0-46.0); HEMOGLOBIN 11.6 GM/DL (11.6-15.3); LYMPH % 14.3 % (9.0-44.0); LYMPHOCYTE # 1.7 TH/MM3 (1.0-4.8); MEAN CELL VOLUME 92.3 FL (80.0-100.0); MEAN CORPUSCULAR HEMOGLOBIN 31.2 PG (27.0-34.0); MEAN CORPUSCULAR HGB CONC 33.8 % (32.0-36.0); MEAN PLATELET VOLUME 7.9 FL (7.0-11.0); MONO % 8.3 % (0.0-8.0); NEUT % 76.8 % (16.0-70.0); PLATELET COUNT 399 TH/MM3 (150-450); RED CELL DISTRIBUTION WIDTH 14.1 % (11.6-17.2); WHITE BLOOD COUNT 12.2 TH/MM3 (4.0-11.0)
[2017-10-27] MEDS: ENALAPRILAT 2.5 MG/2 ML VIAL IV PUSH PRN (09:50)
[2017-10-27] MEDS: methylPREDNISolone SOD SUCC 40 MG/1 ML VIAL IV PUSH SCH ×3 (09:50→20:56)
[2017-10-27 09:52] LABS: BICARBONATE 29.7 MEQ/L (21.0-32.0); CALCIUM 8.9 MG/DL (8.5-10.1); CREATININE 0.71 MG/DL (0.50-1.00)
[2017-10-28] VITALS: BP 158/75; PULSE 52; RESP 18; TEMP 97.7; O2SAT 97
[2017-10-28] MEDS: MORPHINE SULFATE 4 MG/ML INJ IV PUSH PRN ×5 (03:40→16:20)
[2017-10-28 04:00] VITALS: BP 192/83; PULSE 56; RESP 18; TEMP 97.5; O2SAT 98
[2017-10-28] MEDS: methylPREDNISolone SOD SUCC 40 MG/1 ML VIAL IV PUSH SCH ×2 (05:51→13:06)
[2017-10-28] MEDS: PIPERACIL-TAZO 3.375 GM PREMIX 50 ML IV SCH ×2 (05:51→13:05)
[2017-10-28] MEDS: ENALAPRILAT 2.5 MG/2 ML VIAL IV PUSH PRN (05:54)
[2017-10-28 08:00] VITALS: BP 162/71; PULSE 53; RESP 17; TEMP 97.5; O2SAT 99
--- NOTE | 2017-10-28 09:40 | HHI.PR ---
Subjective Remarks in no acute distress. still with some pain to the jaw. no fever. awaiting transfer to [facility]. Objective Vitals Vital Signs Date Time Temp Pulse Resp B/P (MAP) Pulse Ox O2 Delivery O2 Flow Rate FiO2 10/28/17 04:00 97.5 56 18 192/83 (119) 98 10/28/17 00:00 97.7 52 18 158/75 (102) 97 10/27/17 20:00 97.5 58 18 170/84 (112) 100 10/27/17 16:23 97.3 58 18 143/67 (92) 99 10/27/17 11:34 97.8 69 18 160/72 (101) 98 I/O 10/27/17 10/27/17 10/27/17 10/28/17 10/28/17 10/28/17 07:00 15:00 23:00 07:00 15:00 23:00 Intake Total 300 ml 980 ml 301 ml Balance 300 ml 980 ml 301 ml Intake IV Total 300 ml 980 ml 301 ml # Voids 1 3 Result Diagram: 10/27/17 0813 10/27/17 0813 Imaging Last Impressions Chest X-Ray 10/26/17 1933 Signed Impressions: Service Date/Time: Thursday, October 26, 2017 19:53 - CONCLUSION: 1. No acute cardiopulmonary disease. Clifford Henderson MD Maxillofacial CT 10/26/17 0000 Signed Impressions: Service Date/Time: Thursday, October 26, 2017 20:16 - CONCLUSION: 1. Findings of subperiosteal abscess on the left deep to the masseter muscle likely related to dental disease with osteomyelitis in the left mandible. Clifford Henderson MD Objective Remarks GENERAL: This is a well-nourished, well-developed patient, in no apparent distress. CARDIOVASCULAR: Regular rate and regular rhythm without murmurs, gallops, or rubs. RESPIRATORY: Clear to auscultation. Breath sounds equal bilaterally. No wheezes , rales, or rhonchi. GASTROINTESTINAL: Abdomen soft, non-tender, nondistended. Normal, active bowel sounds MUSCULOSKELETAL: Extremities without clubbing, cyanosis, or edema. NEURO: Alert & Oriented x4 to person, place, time, situation. Moves all ext x4 Medications and IVs Inpatient Medications Acetaminophen (Tylenol) 650 mg Q4H PRN PO TEMP > 100.4; Start 10/27/17 at 04:15 ; Stop 10/27/17 at 15:28; Status DC Clindamycin/ Sodium Chloride 50 ml @ 100 mls/hr Q6H IV ; Start 10/27/17 at 06: 00; Stop 10/27/17 at 06:05; Status DC Clonidine (Catapres) 0.1 mg ONCE ONCE PO Last administered on 10/27/17at 06:50 ; Start 10/27/17 at 06:45; Stop 10/27/17 at 06:46; Status DC Enalaprilat (Vasotec Inj) 2.5 mg Q6H PRN IV PUSH SBP>180 or DBP>100 Last administered on 10/28/17at 05:54; Start 10/27/17 at 09:15 Ketorolac Tromethamine (Toradol Inj) 15 mg ONCE ONCE IV PUSH Last administered on 10/26/17at 20:03; Start 10/26/17 at 20:00; Stop 10/26/17 at 20:01 ; Status DC Methylprednisolone Sodium Succinate (SoluMEDROL INJ) 40 mg Q8HR IV PUSH Last administered on 10/28/17at 05:51; Start 10/27/17 at 09:15 Morphine Sulfate (Morphine Inj) 4 mg Q3H PRN IV PUSH pain 6-10 Last administered on 10/28/17at 06:30; Start 10/27/17 at 04:15 Naloxone HCl (Narcan Inj) 0.4 mg UNSCH PRN IV PUSH SEE LABEL COMMENTS; Start at 04:15; Stop 10/27/17 at 15:28; Status DC Ondansetron HCl (Zofran Inj) 4 mg Q6H PRN IVP NAUSEA OR VOMITING; Start at 04:15; Stop 10/27/17 at 15:28; Status DC Piperacillin Sod/ Tazobactam Sod 50 ml @ 100 mls/hr Q6H IV Last administered on 10/28/17at 05:51; Start 10/27/17 at 06:00 Potassium Bicarb/ Potassium Chloride (K-Lyte Cl Eff) 25 meq ONCE ONCE PO Last administered on 10/26/17at 21:34; Start 10/26/17 at 20:45; Stop 10/26/17 at 20:46; Status DC Sodium Chloride (NS Flush) 2 ml BID IV FLUSH ; Start 10/27/17 at 09:00; Stop at 15:28; Status DC Vancomycin HCl 1000 mg/Sodium Chloride 250 ml @ 250 mls/hr ONCE ONCE IV Last administered on 10/27/17at 07:53; Start 10/27/17 at 06:15; Stop 10/27/17 at 07:14 ; Status DC A/P Assessment and Plan Left sided jaw swelling and pain -Outpatient oral surgeon recommended to take amoxicillin and patient was scheduled for extraction of teeth 17 and 19 on November 11, 2017. Fail outpatient treatment symptoms are worsening. -CT scan shows subperiosteal abscess in left deep masseter muscle with osteomyelitis of the left mandible. 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 for transfer patient to [facility]. -continue Zosyn. . HTN -Due to the severity of the swelling patient unable take oral intake. Will give as needed IV antihypertensive medication. DVT prophylaxis -SCDs and encourage ambulation. Discharge Planning for transfer to [facility]. see med list. d/w the patient. Tres Baird MD Oct 28, 2017 09:40
--- NOTE | 2017-10-28 09:41 | HHI.DS ---
Discharge Summary Admission Date Oct 26, 2017 at 21:40 Discharge Date: Oct 28, 2017 Admitting Diagnosis Left mandible osteomyelitis, left masseter abscess (1) left mandible infection Diagnosis: Principal Procedures none Brief History - From Admission This is a 47-year-old female past medical history of poor oral hygiene and previous dental abscess who presented with left sided tooth pain and swelling of the jaw. Patient stated that this occurred about 2 weeks ago when she had left-sided tooth pain and or surgeon. Patient was given amoxicillin and pain medication and will schedule for an extraction of teeth 17 and 19 on November 11. Patient stated that she only took 2 days of amoxicillin but the swelling increase so she initially went to [facility] but was discharged so came here. Patient also stated that she is not able to afford the procedure. Patient stated that she cannot open her mouth and she is having difficulty breathing. Patient was also given clindamycin but did not take any of that medication. Denies any fevers or chills. A year ago she had abscess drainage and was septic for similar conditions. All other review of system reviewed and negative. CBC/BMP: 10/27/17 0813 10/27/17 0813 Significant Findings Laboratory Tests Test 10/26/17 18:55 10/26/17 19:50 10/26/17 21:16 10/27/17 08:13 White Blood Count 12.9 TH/MM3 (4.0-11.0) 12.2 TH/MM3 (4.0-11.0) Monocytes (%) (Auto) 8.5 % (0.0-8.0) 8.3 % (0.0-8.0) Neutrophils # (Auto) 9.0 TH/MM3 (1.8-7.7) 9.3 TH/MM3 (1.8-7.7) Monocytes # (Auto) 1.1 TH/MM3 (0-0.9) 1.0 TH/MM3 (0-0.9) Aspartate Amino Transf (AST/SGOT) 9 U/L (15-37) Potassium Level 3.3 MEQ/L (3.5-5.1) 3.4 MEQ/L (3.5-5.1) Carbon Dioxide Level 32.1 MEQ/L (21.0-32.0) Estimat Glomerular Filtration Rate 73 ML/MIN (>89) C-Reactive Protein 1.08 MG/DL (0.00-0.30) Urine Leukocyte Esterase SMALL (NEG) Red Blood Count 3.70 MIL/MM3 (4.00-5.30) Hematocrit 34.1 % (35.0-46.0) Neutrophils (%) (Auto) 76.8 % (16.0-70.0) Blood Urea Nitrogen 4 MG/DL (7-18) Imaging Last Impressions Chest X-Ray 10/26/17 1933 Signed Impressions: Service Date/Time: Thursday, October 26, 2017 19:53 - CONCLUSION: 1. No acute cardiopulmonary disease. Clifford Henderson MD Maxillofacial CT 10/26/17 0000 Signed Impressions: Service Date/Time: Thursday, October 26, 2017 20:16 - CONCLUSION: 1. Findings of subperiosteal abscess on the left deep to the masseter muscle likely related to dental disease with osteomyelitis in the left mandible. Clifford Henderson MD PE at Discharge GENERAL: This is a well-nourished, well-developed patient, in no apparent distress. CARDIOVASCULAR: Regular rate and regular rhythm without murmurs, gallops, or rubs. RESPIRATORY: Clear to auscultation. Breath sounds equal bilaterally. No wheezes , rales, or rhonchi. GASTROINTESTINAL: Abdomen soft, non-tender, nondistended. Normal, active bowel sounds MUSCULOSKELETAL: Extremities without clubbing, cyanosis, or edema. NEURO: Alert & Oriented x4 to person, place, time, situation. Moves all ext x4 Hospital Course Left sided jaw swelling and pain -Outpatient oral surgeon recommended to take amoxicillin and patient was scheduled for extraction of teeth 17 and 19 on November 11, 2017. Fail outpatient treatment symptoms are worsening. -CT scan shows subperiosteal abscess in left deep masseter muscle with osteomyelitis of the left mandible. Labs reviewed with mild leukocytosis of 12, 000 CRP 1.08. 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 Will talk to Dr. Cruz to see if he would see patient. If not we will need to transfer patient to [facility]. -Patient was given clindamycin in the ED and was started on vancomycin and Zosyn. Will continue vancomycin and Zosyn. -At the moment there is no airway compromise. We will also manage her pain and give supportive care with IV fluids. HTN -Due to the severity of the swelling patient unable take oral intake. Will give as needed IV antihypertensive medication. DVT prophylaxis -SCDs and encourage ambulation. Pt Condition on Discharge: Fair Discharge Disposition: Trnsfr to Other Facility Discharge Time: <= 30 minutes Discharge Instructions DIET: Follow Instructions for: Heart Healthy Diet Additional Diet Instructions: Patient to remain n.p.o. pending surgery. Activities you can perform: Regular-No Restrictions Tres Baird MD Oct 28, 2017 09:41
[2017-10-28 12:00] VITALS: BP 180/81; PULSE 52; RESP 18; TEMP 97.4; O2SAT 100
[2017-10-28 13:16] VITALS: RESP 16
== END 2017-10-28 16:31 | disposition short-term general hospital (02) | DRG 158 ==
LOC: NEPC 18:44 → NEDA 21:40 → N05B 10-27 00:37
PROVIDERS: ADMIT Internal Medicine; ATTEND Internal Medicine
DX: M27.2 Inflammatory conditions of jaws (principal); M60.08 Infective myositis, other site; I10 Essential (primary) hypertension; K04.7 Periapical abscess without sinus; J45.909 Unspecified asthma, uncomplicated; K21.9 Gastro-esophageal reflux disease without esophagitis; G47.00 Insomnia, unspecified; F31.9 Bipolar disorder, unspecified; Z72.0 Tobacco use; Z86.73 Personal history of transient ischemic attack (TIA), and cerebral infarction without residual deficits; Z88.5 Allergy status to narcotic agent; Z91.14 Patient's other noncompliance with medication regimen
CPT/HCPCS: 70487; 71045; 80048; 80053; 81001; 83605; 84703; 85025; 85610; 85730; 86140; 87040; 96365; 96375; J1885; J2270; J2543; J2920; J3370; J7030; J7050; Q9967